=== PATIENT | male | born 1945 | race African-American/Black ===

== ENCOUNTER 2016-12-15 22:28 | Emergency (ER) | payer MEDICARE, OTHER ==
[~2016-12-15] VITALS: Ht 185.4 cm; Wt 101.0 kg
[~2016-12-15 22:28] MED LIST: AMIT50TA3 PO; AMMO12LO TOPICAL; ASPI1TAB69 PO; ATEN50TA PO; CYAN100016 PO; HYDR50TA3 PO; LISI40TA PO; MAGN400T2 PO; MELO-1 PO; METF1000 PO; NIFE30TA61 PO; POTA-163 PO; PRAV40TA2 PO; VITA100018 PO
[2016-12-15 22:29] VITALS: BP 134/76; PULSE 91; RESP 16; TEMP 98.3; O2SAT 97
[2016-12-15] MEDS ORDERED: ASPI81TA81 (22:44)
--- NOTE | 2016-12-15 22:57 | PD ---
HPI Chief Complaint: Numbness/Tingling Time Seen by Provider: 22:45 Travel History International Travel<30 days: No Contact w/Intl Traveler<30days: No Traveled to known affect area: No History of Present Illness HPI This patient complains of lightheadedness. Started yesterday. No head injury. No syncope or chest pain or palpitations. Yesterday he had some palpitations in his right arm and hand but no muscle weakness or sensory loss. No face or torso or leg symptoms. Those have resolved and he does not have any of that now. No speech slurring or confusion. Severity is moderate. No alleviating factors. Duration 30 hours PFSH Past Medical History Hx Anticoagulant Therapy: Yes Arthritis: Yes Blood Disorders: No Anxiety: No Depression: No Heart Rhythm Problems: No Cancer: Yes (PROSTATE) Cardiovascular Problems: Yes (htn) High Cholesterol: Yes Chemotherapy: Yes (2011) Chest Pain: Yes Congestive Heart Failure: No Diabetes: Yes Patient Takes Glucophage: No Diminished Hearing: No Endocrine: Yes Gastrointestinal Disorders: Yes GERD: No Genitourinary: No Hepatitis: Yes (B) Hiatal Hernia: No Hypertension: Yes Immune Disorder: No Musculoskeletal: Yes Neurologic: No Psychiatric: No Reproductive: No Respiratory: Yes (BRONCHITIS) Myocardial Infarction: No Thyroid Disease: No Ulcer: No Influenza Vaccination: Yes Past Surgical History Abdominal Surgery: Yes Appendectomy: Yes Cardiac Surgery: No Cholecystectomy: No Ear Surgery: No Endocrine Surgery: No Eye Surgery: No Genitourinary Surgery: Yes (PROSTATE) Gynecologic Surgery: No Joint Replacement: Yes (KNEE MANIPULATION AND REPLACE) Oral Surgery: No Thoracic Surgery: No Tonsillectomy: Yes Other Surgery: Yes Social History Alcohol Use: No Tobacco Use: No (never) Substance Use: No Allergies-Medications (Allergen,Severity, Reaction): Coded Allergies: Codeine (Verified Allergy, Intermediate, HALLUCINATIONS, 12/15/16) Reported Meds & Prescriptions Reported Meds & Active Scripts Active Reported Aspir-81 (Aspirin) 81 Mg Tabdr Ammonium Lactate (Lactic Acid (Ammonium Lactate)) 12% Lotn 1 Applic TOPICAL BID Amitriptyline (Amitriptyline HCl) 50 Mg Tab 50 Mg PO HS Pravastatin 40 Mg Tab 40 Mg PO DAILY Potassium Chloride ER (Potassium Chloride) 20 Meq Tab 20 Meq PO BID Nifedipine ER 24 HR (Nifedipine) 30 Mg Tab 30 Mg PO DAILY Metformin (Metformin HCl) 1,000 Mg Tab 1,000 Mg PO BIDPC With meals Meloxicam 15 Mg Tab 15 Mg PO DAILY Magnesium Oxide 400 Mg Tab 400 Mg PO DAILY Lisinopril 40 Mg Tab 40 Mg PO DAILY Hydrochlorothiazide 50 Mg Tab 50 Mg PO DAILY Vitamin D3 (Cholecalciferol) 1,000 Unit Tab 1,000 Units PO DAILY Atenolol 50 Mg Tab 50 Mg PO DAILY Review of Systems General / Constitutional: No: Fever Eyes: No: Visual changes HENT: Positive: Lightheadedness, No: Headaches Cardiovascular: No: Chest Pain or Discomfort Respiratory: No: Shortness of Breath Gastrointestinal: No: Abdominal Pain Genitourinary: No: Dysuria Musculoskeletal: No: Pain Skin: No Rash Neurologic: Positive: Paresthesia, No: Weakness Psychiatric: No: Depression Endocrine: No: Polydipsia Hematologic/Lymphatic: No: Easy Bruising Physical Exam Narrative GENERAL: Well-nourished, well-developed patient in no apparent distress. SKIN: Focused skin assessment reveals no rash and nodules. Skin is Warm and dry. HEAD: Atraumatic. Normocephalic. No scalp findings. EYES: Pupils equal and round. No scleral icterus. No injection or drainage. ENT: No nasal bleeding or discharge. Mucous membranes pink and moist. NECK: Trachea midline. No JVD. No meningeal signs CARDIOVASCULAR: Regular rate and rhythm. No murmur appreciated. RESPIRATORY: No accessory muscle use. Clear to auscultation. Breath sounds equal bilaterally. GASTROINTESTINAL: Abdomen soft, non-tender, nondistended. Hepatic and splenic margins not palpable. MUSCULOSKELETAL: No obvious deformities. No clubbing. No cyanosis. No edema. NEUROLOGICAL: Awake and alert. No obvious cranial nerve deficits. Motor grossly within normal limits. Normal speech. Sensation intact PSYCHIATRIC: Appropriate mood and affect; insight and judgment normal. Data Data Last Documented VS Vital Signs Date Time Temp Pulse Resp B/P Pulse Ox O2 Delivery O2 Flow Rate FiO2 12/16/16 01:50 92 18 130/72 91 18 140/69 83 18 152/78 12/15/16 22:58 98 Room Air 12/15/16 22:29 98.3 Orders Electrocardiogram (12/15/16 22:51) Prothrombin Time / Inr (Pt) (12/15/16 22:51) Act Partial Throm Time (Ptt) (12/15/16 22:51) Complete Blood Count With Diff (12/15/16 22:51) Basic Metabolic Panel (Bmp) (12/15/16 22:51) Ct Brain W/O Iv Contrast(Rout) (12/15/16 22:51) Ecg Monitoring (12/15/16 22:51) Iv Access Insert/Monitor (12/15/16 22:51) Oximetry (12/15/16 22:51) Sodium Chloride 0.9% Flush (Ns Flush) (12/15/16 23:00) Orthostatic Vital Signs (12/15/16 22:51) Sodium Chlor 0.9% 1000 Ml Inj (Ns 1000 M (12/16/16 01:00) Sodium Chlor 0.9% 1000 Ml Inj (Ns 1000 M (12/16/16 01:00) Labs Laboratory Tests Test 12/15/16 22:55 Prothrombin Time 11.6 SEC Prothromb Time International 1.0 RATIO Ratio Activated Partial 24.2 SEC Thromboplast Time Sodium Level 143 MEQ/L Potassium Level 5.8 MEQ/L Chloride Level 108 MEQ/L Carbon Dioxide Level 28.2 MEQ/L Anion Gap 7 MEQ/L Blood Urea Nitrogen 40 MG/DL Creatinine 1.76 MG/DL Estimat Glomerular Filtration 46 ML/MIN Rate Random Glucose 86 MG/DL Calcium Level 9.4 MG/DL White Blood Count 72.3 TH/MM3 Red Blood Count 4.95 MIL/MM3 Hemoglobin 12.8 GM/DL Hematocrit 39.7 % Mean Corpuscular Volume 80.1 FL Mean Corpuscular Hemoglobin 25.7 PG Mean Corpuscular Hemoglobin 32.2 % Concent Red Cell Distribution Width 16.2 % Platelet Count 155 TH/MM3 Mean Platelet Volume 9.3 FL Neutrophils (%) (Auto) % Lymphocytes (%) (Auto) % Monocytes (%) (Auto) % Eosinophils (%) (Auto) % Basophils (%) (Auto) % Neutrophils # (Auto) TH/MM3 Lymphocytes # (Auto) TH/MM3 Monocytes # (Auto) TH/MM3 Eosinophils # (Auto) TH/MM3 Basophils # (Auto) TH/MM3 CBC Comment AUTO DIFF Differential Total Cells 100 Counted Neutrophils % (Manual) 8 % Lymphocytes % 9 % Monocytes % 2 % Other Cells % 81 % Neutrophils # (Manual) 5.8 TH/MM3 Differential Comment FINAL DIFF MANUAL Platelet Estimate NORMAL Platelet Morphology Comment NORMAL Ovalocytes 1+ Acanthocytes OCC MDM Medical Decision Making Medical Screen Exam Complete: Yes Emergency Medical Condition: Yes Medical Record Reviewed: Yes Differential Diagnosis Vertigo, orthostatic hypotension, cardiac arrhythmia, CVA Narrative Course I have reviewed the patient's electronic medical record. IV placed CBC shows significant leukocytosis consistent with chronic lymphocytic leukemia as he reports that he has and is just being monitored and not treated Metabolic profile shows azotemia which is a new change. I gave him 2 L of normal saline IV after this. After IV fluid his orthostatics are very normal and he feels improved Brain CT is normal I reviewed his EKG which shows sinus rhythm without ectopy Extended cardiac monitoring shows sinus rhythm without ectopy Patient is neurologically intact. He has some lightheadedness but otherwise doing well. Vital signs are normal. Yesterday he had some right arm paresthesias that have resolved and not recurred today. I don't see any objective evidence of stroke. Patient had some dehydration and azotemia causing lightheadedness. Likely etiology is diuretic Diagnosis Primary Impression: Lightheadedness Additional Impressions: Dehydration, moderate Renal insufficiency Additional Instructions: The patient was advised to follow up with their physician and return if they worsen. Discuss continued diuretic use with her primary physician Med/Other Pt SpecificInfo: Other Disposition: DISCHARGE HOME Condition: Stable Chilo Gomes MD Dec 15, 2016 22:57
[2016-12-15 22:58] VITALS: O2SAT 98
[2016-12-15] MEDS ORDERED: SODIUM CHLORIDE 0.9% FLUSH 10 ML FLUSH IVF PRN (23:00)
[2016-12-15 23:23] LABS: APTT (PATIENT) 24.2 SEC (24.3-30.1); PROTHROMBIN TIME - PATIENT 11.6 SEC (9.8-11.6)
[2016-12-15 23:26] LABS: BICARBONATE 28.2 MEQ/L (21.0-32.0)
[2016-12-15 23:27] LABS: HEMATOCRIT 39.7 % (39.0-51.0); MEAN CELL VOLUME 80.1 FL (80.0-100.0); MEAN CORPUSCULAR HEMOGLOBIN 25.7 PG (27.0-34.0); MEAN CORPUSCULAR HGB CONC 32.2 % (32.0-36.0); PLATELET COUNT 155 TH/MM3 (150-450); RED BLOOD COUNT 4.95 MIL/MM3 (4.50-5.90); RED CELL DISTRIBUTION WIDTH 16.2 % (11.6-17.2); WHITE BLOOD COUNT 72.3 TH/MM3 (4.0-11.0)
[2016-12-15 23:28] LABS: HEMO FLAGS AUTO DIFF; POTASSIUM 5.8 MEQ/L (3.5-5.1)
--- NOTE | 2016-12-16 | RADRPT ---
EXAM DATE/TIME: 12/15/2016 23:28 [facility] COMPARISON: CT BRAIN W/O CONTRAST, April 06, 2016, 11:19. INDICATIONS : Altered mental status, cephalgia and blurred vision. RADIATION DOSE: 56.35 CTDIvol (mGy) MEDICAL HISTORY : Hypertension. Carcinoma, prostate. Leukemia.Diabetes. SURGICAL HISTORY : None. ENCOUNTER: Initial ACUITY: 2 days PAIN SCALE: 2/10 LOCATION: cranial TECHNIQUE: Multiple contiguous axial images were obtained of the head. Using automated exposure control and adj ustment of the mA and/or kV according to patient size, radiation dose was kept as low as reasonably a chievable to obtain optimal diagnostic quality images. FINDINGS: CEREBRUM: The ventricles are normal for age. No evidence of midline shift, mass lesion, hemorrhage or acute in farction. No extra-axial fluid collections are seen. POSTERIOR FOSSA: The cerebellum and brainstem are intact. The 4th ventricle is midline. The cerebellopontine angle i s unremarkable. EXTRACRANIAL: The visualized portion of the orbits is intact. SKULL: The calvaria is intact. No evidence of skull fracture. CONCLUSION: Negative noncontrast head CT. Alexandro Monson MD on December 15, 2016 at 23:58 Board Certified Radiologist. This report was verified electronically.
[2016-12-16 00:06] LABS: NEUTROPHIL # MANUAL DIFF 5.8 TH/MM3 (1.8-7.7); POLYS (SEG NEUTROPHILS) 8 % (16-70)
[2016-12-16 00:07] LABS: SCAN/DIFF FINAL DIFF MANUAL; WBC DIFF SAMPLE 100
[2016-12-16 00:08] LABS: OVALOCYTES 1+ (NORMAL); PLATELET ESTIMATE SMEAR NORMAL (NORMAL); PLATELET MORPHOLOGY NORMAL (NORMAL)
[2016-12-16 00:09] LABS: ACANTHOCYTES OCC (NORMAL)
[2016-12-16] MEDS ORDERED: SODIUM CHLOR 0.9% 1000 ML INJ 1,000 ML IV ONE ×2 (01:00)
[2016-12-16 01:50] VITALS: BP_SYST 130; BP_SYST 140; BP_SYST 152; BP_DIAS 69; BP_DIAS 72; BP_DIAS 78; RESP 18
--- NOTE | 2016-12-16 13:54 | EKG ---
Date Performed: 12/15/2016 Time Performed: 22:43:53 PTAGE: 71 years EKG: Sinus rhythm NORMAL ECG Compared to prior tracing no significant change PREVIOUS TRACING : 04/06/16 DOCTOR: Carmen Wagoner Interpretating Date/Time 12/16/2016 13:47:40
[2016-12-17 05:27] LABS: SMUDGE CELLS PRESENT PRESENT
== END 2016-12-16 02:22 | disposition home or self-care (01) ==
LOC: NEPC 22:28
DX: R42 Dizziness and giddiness (principal); E86.0 Dehydration; N28.9 Disorder of kidney and ureter, unspecified; D72.829 Elevated white blood cell count, unspecified; E11.9 Type 2 diabetes mellitus without complications; I10 Essential (primary) hypertension; E78.00 Pure hypercholesterolemia, unspecified; Z79.82 Long term (current) use of aspirin; Z79.899 Other long term (current) drug therapy
CPT/HCPCS: 70450; 80048; 85007; 85027; 85610; 85730; 93005; 96360; 99285; J7030

== ENCOUNTER 2017-04-22 06:12 | Inpatient (IN) | payer MEDICARE, OTHER ==
[~2017-04-22] VITALS: Ht 185.4 cm; Wt 100.0 kg
[2017-04-22] VITALS (8 sets, daily range): BP systolic 130–153; BP diastolic 67–86; PULSE 76–103; RESP 16–18; TEMP 97.7–98.4; O2SAT 95–99
[~2017-04-22 06:12] MED LIST changes: -ASPI1TAB69 PO; +ASPI81TA81; -CYAN100016 PO
[2017-04-22] MEDS ORDERED: IOHEXOL 350 MG/ML 10 ML VIAL (for RAD DIAG) IVCONTRAST ONE (06:13)
--- NOTE | 2017-04-22 07:13 | PD ---
HPI Chief Complaint: Abdominal Pain Time Seen by Provider: 06:59 Travel History International Travel<30 days: No Contact w/Intl Traveler<30days: No Traveled to known affect area: No History of Present Illness HPI 71-year-old male presents with diffuse abdominal pain and dark stools over the past couple days. He states that he first noticed her symptoms on . He states that he feels worse when he moves around. He states that the pain will go up into his chest. He states that he takes an aspirin daily. He denies other specific modifying factors. Quality is crampy. Severity is moderate. He denies migration of the pain. Location is diffuse. PFSH Past Medical History Hx Anticoagulant Therapy: Yes Arthritis: Yes Blood Disorders: No Anxiety: No Depression: No Heart Rhythm Problems: No Cancer: Yes (PROSTATE) Cardiovascular Problems: Yes (htn) High Cholesterol: Yes Chemotherapy: Yes (2011) Chest Pain: Yes Congestive Heart Failure: No Diabetes: Yes Patient Takes Glucophage: Yes Diminished Hearing: No Endocrine: Yes Gastrointestinal Disorders: Yes GERD: No Genitourinary: No Hepatitis: Yes (B) Hiatal Hernia: No Hypertension: Yes Immune Disorder: No Musculoskeletal: Yes Neurologic: No Psychiatric: No Reproductive: No Respiratory: Yes (BRONCHITIS) Myocardial Infarction: No Thyroid Disease: No Ulcer: No Past Surgical History Abdominal Surgery: Yes Appendectomy: Yes Cardiac Surgery: No Cholecystectomy: No Ear Surgery: No Endocrine Surgery: No Eye Surgery: No Genitourinary Surgery: Yes (PROSTATE) Gynecologic Surgery: No Joint Replacement: Yes (KNEE MANIPULATION AND REPLACE) Oral Surgery: No Thoracic Surgery: No Tonsillectomy: Yes Other Surgery: Yes Social History Alcohol Use: No Tobacco Use: No (never) Substance Use: No Allergies-Medications (Allergen,Severity, Reaction): Coded Allergies: codeine (Unverified Allergy, Intermediate, HALLUCINATIONS, 04/22/17) Reported Meds & Prescriptions Reported Meds & Active Scripts Active Reported Aspir-81 (Aspirin) 81 Mg Tabdr Ammonium Lactate (Lactic Acid (Ammonium Lactate)) 12% Lotn 1 Applic TOPICAL BID Amitriptyline (Amitriptyline HCl) 50 Mg Tab 50 Mg PO HS Pravastatin 40 Mg Tab 40 Mg PO DAILY Potassium Chloride ER (Potassium Chloride) 20 Meq Tab 20 Meq PO BID Nifedipine ER 24 HR (Nifedipine) 30 Mg Tab 30 Mg PO DAILY Metformin (Metformin HCl) 1,000 Mg Tab 1,000 Mg PO BIDPC With meals Meloxicam 15 Mg Tab 15 Mg PO DAILY Magnesium Oxide 400 Mg Tab 400 Mg PO DAILY Lisinopril 40 Mg Tab 40 Mg PO DAILY Hydrochlorothiazide 50 Mg Tab 50 Mg PO DAILY Vitamin D3 (Cholecalciferol) 1,000 Unit Tab 1,000 Units PO DAILY Atenolol 50 Mg Tab 50 Mg PO DAILY Review of Systems Except as stated in HPI: all other systems reviewed are Neg Physical Exam Narrative GENERAL: Well-nourished, well-developed patient. SKIN: Warm and dry. HEAD: Normocephalic and atraumatic. EYES: No injection or drainage. ENT: No nasal drainage noted. NECK: Supple, trachea midline. CARDIOVASCULAR: Regular rate and rhythm RESPIRATORY: No increased effort. No accessory muscle use. GASTROINTESTINAL: Abdomen soft, mild tenderness diffusely non-tender, nondistended. RECTAL EXAM: Performed with cow tender and after permission. No external hemorrhoid or fissure, stool is black and nonbloody NEUROLOGICAL: Awake and alert. Motor and sensory grossly within normal limits. Normal speech. Data Data Last Documented VS Vital Signs Date Time Temp Pulse Resp B/P (MAP) Pulse Ox O2 Delivery O2 Flow Rate FiO2 04/22/17 07:04 16 (100) 96 Room Air 04/22/17 07:04 89 04/22/17 06:14 97.7 Orders Orders Complete Blood Count With Diff (04/22/17 07:02) Comprehensive Metabolic Panel (04/22/17 07:02) Urinalysis - C+S If Indicated (04/22/17 07:02) Lipase (04/22/17 07:02) Ct Abd/Pel W Iv Contrast(Rout) (04/22/17 ) Iv Access Insert/Monitor (04/22/17 07:02) Oximetry (04/22/17 07:02) Electrocardiogram (04/22/17 07:02) Ckmb (Isoenzyme) Profile (04/22/17 07:02) Magnesium (Mg) (04/22/17 07:02) Prothrombin Time / Inr (Pt) (04/22/17 07:02) Act Partial Throm Time (Ptt) (04/22/17 07:02) Troponin I (04/22/17 07:02) Chest, Single Ap (04/22/17 07:02) Bilateral Bp Monitoring (04/22/17 07:02) Sodium Chloride 0.9% Flush (Ns Flush) (04/22/17 07:15) Pantoprazole Inj (Protonix Inj) (04/22/17 07:15) Iohexol 350 Inj (Omnipaque 350 Inj) (04/22/17 06:13) Sodium Chlorid 0.9% 500 Ml Inj (Ns 500 M (04/22/17 08:45) Admit Order (Ed Use Only) (04/22/17 09:37) Labs Laboratory Tests Test 04/22/17 07:00 White Blood Count 82.7 TH/MM3 Red Blood Count 4.58 MIL/MM3 Hemoglobin 11.8 GM/DL Hematocrit 36.3 % Mean Corpuscular Volume 79.3 FL Mean Corpuscular Hemoglobin 25.8 PG Mean Corpuscular Hemoglobin Concent 32.5 % Red Cell Distribution Width 17.2 % Platelet Count 115 TH/MM3 Mean Platelet Volume 8.7 FL CBC Comment AUTO DIFF Differential Total Cells Counted 100 Neutrophils % (Manual) 3 % Lymphocytes % 95 % Monocytes % 2 % Neutrophils # (Manual) 2.5 TH/MM3 Differential Comment FINAL DIFF MANUAL Plasma Cells % Smudge Cells PRESENT Platelet Estimate LOW Platelet Morphology Comment NORMAL Prothrombin Time 12.0 SEC Prothromb Time International Ratio 1.1 RATIO Activated Partial Thromboplast Time 28.2 SEC Blood Urea Nitrogen 24 MG/DL Creatinine 1.08 MG/DL Random Glucose 149 MG/DL Total Protein 7.8 GM/DL Albumin 3.8 GM/DL Calcium Level 9.0 MG/DL Magnesium Level 1.9 MG/DL Alkaline Phosphatase 89 U/L Aspartate Amino Transf (AST/SGOT) 24 U/L Alanine Aminotransferase (ALT/SGPT) 27 U/L Total Bilirubin 0.5 MG/DL Sodium Level 139 MEQ/L Potassium Level 3.6 MEQ/L Chloride Level 105 MEQ/L Carbon Dioxide Level 24.6 MEQ/L Anion Gap 9 MEQ/L Estimat Glomerular Filtration Rate 81 ML/MIN Total Creatine Kinase 100 U/L Troponin I LESS THAN 0.02 NG/ML Lipase 97 U/L MDM Medical Decision Making Medical Screen Exam Complete: Yes Emergency Medical Condition: Yes Medical Record Reviewed: Yes (past history confirmed) Interpretation(s) CBC & BMP Diagram 04/22/17 07:00 Total Protein 7.8, Albumin 3.8, Calcium Level 9.0, Magnesium Level 1.9, Alkaline Phosphatase 89, Aspartate Amino Transf (AST/SGOT) 24, Alanine Aminotransferase (ALT/SGPT) 27, Total Bilirubin 0.5 Last 24 hours Impressions Abdomen/Pelvis CT 04/22/17 0000 Signed Impressions: Service Date/Time: Saturday, April 22, 2017 08:23 - CONCLUSION: 1. New splenomegaly and retroperitoneal adenopathy. This is worrisome for a myeloproliferative disorder. 2. Low density lesion involving the spleen which is poorly characterized on this exam. This is new from the prior study. 3. 2 small pulmonary nodules which are new from the prior study. They are poorly characterize on this exam. There could relate to a myeloproliferative disorder. Consider full CT of the thorax to evaluate the remaining lungs. Rocael Mueller Jr., MD Differential Diagnosis Gastroenteritis, pancreatitis, stone, GI bleed, atypical cardiac Narrative Course Will check blood work, urinalysis, chest x-ray, CT abdomen and dose with Protonix and reevaluate Patient has anemia of 11.8 with prior of 12.8. Stools guaiac positive. Patient updated about CT and states he follows with an oncologist at the [facility] that he's follow week ago. He states he is currently not on treatment. He agrees to observation for further monitoring. Patient states he also has pain that intermittently goes up into his chest but denies any currently. Given active guaiac positive stools will hold aspirin and this can be followed in the [facility] Point of Care Internal Pos. & Neg. Controls: Passed Fecal Specimen Occult Blood: Positive Physician Communication Physician Communication resident team agrees to observation Diagnosis Primary Impression: Hematochezia Additional Impressions: Anemia Qualified Codes: D64.9 - Anemia, unspecified Abdominal pain Qualified Codes: R10.84 - Generalized abdominal pain CLL (chronic lymphocytic leukemia) Admitting Information Admitting Physician Requests: Observation Karina Osorio MD Apr 22, 2017 07:13
[2017-04-22] MEDS ORDERED: SODIUM CHLORIDE 0.9% FLUSH 10 ML FLUSH IVF PRN (07:15)
[2017-04-22] MEDS ORDERED: PANTOPRAZOLE SODIUM 40 MG VIAL IV PUSH ONE (07:15)
[2017-04-22 07:27] LABS: HEMATOCRIT 36.3 % (39.0-51.0); HEMOGLOBIN 11.8 GM/DL (13.0-17.0); MEAN CELL VOLUME 79.3 FL (80.0-100.0); MEAN CORPUSCULAR HEMOGLOBIN 25.8 PG (27.0-34.0); MEAN CORPUSCULAR HGB CONC 32.5 % (32.0-36.0); MEAN PLATELET VOLUME 8.7 FL (7.0-11.0); PLATELET COUNT 115 TH/MM3 (150-450); RED BLOOD COUNT 4.58 MIL/MM3 (4.50-5.90); RED CELL DISTRIBUTION WIDTH 17.2 % (11.6-17.2); WHITE BLOOD COUNT 82.7 TH/MM3 (4.0-11.0)
[2017-04-22 07:40] LABS: INTERNATIONAL NORMALIZED RATIO 1.1 RATIO
[2017-04-22 07:45] LABS: ALBUMIN 3.8 GM/DL (3.4-5.0); ALT (GPT) 27 U/L (12-78); AST (GOT) 24 U/L (15-37); BICARBONATE 24.6 MEQ/L (21.0-32.0); BLOOD UREA NITROGEN 24 MG/DL (7-18); CHLORIDE 105 MEQ/L (98-107); CREATININE 1.08 MG/DL (0.60-1.30); GLOMERULAR FILTRATION RATE 81 ML/MIN (>89); GLUCOSE,RANDOM 149 MG/DL (74-106); LIPASE 97 U/L (73-393); MAGNESIUM 1.9 MG/DL (1.5-2.5); SODIUM (NA) 139 MEQ/L (136-145)
[2017-04-22 07:49] LABS: ALKALINE PHOSPHATASE 89 U/L (45-117); TOTAL BILIRUBIN ADULT 0.5 MG/DL (0.2-1.0); TOTAL PROTEIN 7.8 GM/DL (6.4-8.2); TROPONIN I LESS THAN 0.02 NG/ML (0.02-0.05)
--- NOTE | 2017-04-22 08:37 | RADRPT ---
EXAM DATE/TIME: 04/22/2017 07:09 [facility] COMPARISON: CHEST SINGLE AP, April 06, 2016, 11:28. INDICATIONS : Chest pain. MEDICAL HISTORY : Hypertension. Diabetes mellitus type II. SURGICAL HISTORY : None. ENCOUNTER: Initial ACUITY: 1 day PAIN SCORE: 5/10 LOCATION: Bilateral lower chest FINDINGS: The heart is unchanged. The pulmonary vascular pattern is normal. The lungs are clear. CONCLUSION: No significant change compared to 04/06/16. Timothy Morse MD on April 22, 2017 at 7:41 Board Certified Radiologist. This report was verified electronically.
[2017-04-22] MEDS ORDERED: SODIUM CHLORID 0.9% 500 ML INJ 500 ML IV ONE (08:45)
[2017-04-22 08:51] LABS: MONOCYTES 2 % (0-8); NEUTROPHIL # MANUAL DIFF 2.5 TH/MM3 (1.8-7.7); POLYS (SEG NEUTROPHILS) 3 % (16-70)
[2017-04-22 08:57] LABS: SMUDGE CELLS PRESENT PRESENT
[2017-04-22 09:03] LABS: LYMPHOCYTES 95 % (9-44)
--- NOTE | 2017-04-22 09:16 | RADRPT ---
EXAM DATE/TIME: 04/22/2017 08:23 [facility] COMPARISON: CT THORAX W CONTRAST, December 24, 2015, 18:01. INDICATIONS : Diffuse abdominal pain since yesterday. IV CONTRAST: 89 cc Omnipaque 350 (iohexol) IV ORAL CONTRAST: No oral contrast ingested. RADIATION DOSE: 10.29 CTDIvol (mGy) MEDICAL HISTORY : Renal calculi. Carcinoma, prostate. Hepatitis B.Cardiovascular disease. SURGICAL HISTORY : Appendectomy. ENCOUNTER: Initial ACUITY: 1 day PAIN SCALE: 8/10 LOCATION: diffuse abdomen. TECHNIQUE: Volumetric scanning of the abdomen and pelvis was performed. Using automated exposure control and ad justment of the mA and/or kV according to patient size, radiation dose was kept as low as reasonably achievable to obtain optimal diagnostic quality images. DICOM format image data is available electro nically for review and comparison. FINDINGS: LOWER LUNGS: 2 new nodular densities are seen in the bases. There is a 7 on a nodule within the right lung base in 4 mm nodule within the left lung base. No infiltrates observed. LIVER: Homogeneous density without lesion. There is no dilation of the biliary tree. No calcified gallston es. SPLEEN: The spleen is markedly enlarged. This is a new finding. It measures 17.8 cm in anterior to posterior dimension. There is a vague area of decreased density measuring approximately 16 mm in diameter withi n its more anterior aspect. These findings are new from the prior study. PANCREAS: Within normal limits. KIDNEYS: Normal in size and shape. There is no mass, stone or hydronephrosis. The 4.5 cm cyst involving the u pper pole the left kidney. ADRENAL GLANDS: Within normal limits. VASCULAR: There is no aortic aneurysm. BOWEL/MESENTERY: The stomach, small bowel, and colon demonstrate no acute abnormality. There is no free intraperitone al air or fluid. ABDOMINAL WALL: Within normal limits. RETROPERITONEUM: Small retroperitoneal lymph nodes are new from the prior study within the visualized portions of the retroperitoneum. The largest lymph node is adjacent to the celiac measuring 2.0 x 1.3 cm. BLADDER: No wall thickening or mass. REPRODUCTIVE: Within normal limits. INGUINAL: There is no lymphadenopathy or hernia. MUSCULOSKELETAL: The right hip implant observed. A degenerative lumbar spine. Degenerative changes involve the SI join ts. CONCLUSION: 1. New splenomegaly and retroperitoneal adenopathy. This is worrisome for a myeloproliferative disord er. 2. Low density lesion involving the spleen which is poorly characterized on this exam. This is new fr om the prior study. 3. 2 small pulmonary nodules which are new from the prior study. They are poorly characterize on this exam. There could relate to a myeloproliferative disorder. Consider full CT of the thorax to evaluat e the remaining lungs. Rocael Mueller Jr., MD on April 22, 2017 at 8:56 Board Certified Radiologist. This report was verified electronically.
--- NOTE | 2017-04-22 09:39 | HHI.HP ---
[facility] Service Family Medicine Primary Care Physician [facility] Admission Diagnosis gi bleed, abdominal pain Diagnoses: International Travel<30 Days: No Contact w/Intl Traveler<30days: No Known Affected Area: No History of Present Illness Patient is a 71 y/o M w/hx of HTN, HLD, and DM2 who presents w/abdominal pain and melena. Yesterday, patient had a bloated feeling and diffuse 8/10 abdominal pain in stomach, which caused him to take shallow breaths. He bought some peptobismol, drank the whole bottle but saw no improvement. Pain radiated to shoulder, and intensity of pain brought him to hospital. Feels sharp pain when moving shoulder , no abdominal pain now. Noticed black stool late yesterday afternoon, no diarrhea, or loose stools associated with it. Denies lightheadedness, palpitations, or dizziness. Notices his balance is off a little. Was hospitalized a year ago and diagnosed with leukemia. Remembers having abdominal pain before and taking milk of magnesia but no hx of melena of GI bleed that the patient can recall. Primary care doctor is Dr. Pedro in [facility]. Has a [place] doctor, but can't think of his name. Was supposed to see him today. Last colonoscopy was 9 months ago, no abnormal findings. No hx of abnormal colonoscopy. Sees [place] Q6 [place] the [place]. Has not been undergoing treatment for his CLL due to not warranting it. Last appointment was last week, was told that his labs looked good but that he would need to follow up q3 months. Denies weight loss, night sweats, or fevers. (Rajani Fuentes MD R1) Review of Systems Constitutional: COMPLAINS OF: Weight loss (intentional), DENIES: Fever, Change in appetite Endocrine: DENIES: Polydipsia, Polyuria Eyes: DENIES: Blurred vision, Vision loss Ears, nose, mouth, throat: DENIES: Hearing loss, Throat pain, Epistaxis Respiratory: DENIES: Cough, Shortness of breath Cardiovascular: DENIES: Chest pain, Dyspnea on Exertion Gastrointestinal: DENIES: Diarrhea, Nausea, Vomiting Genitourinary: DENIES: Urinary frequency, Urinary incontinence, Penile Discharge Musculoskeletal: DENIES: Muscle aches, Stiffness Integumentary: DENIES: Abnormal pigmentation, Rash Hematologic/lymphatic: DENIES: Bruising, Lymphadenopathy Neurologic: COMPLAINS OF: Headache, DENIES: Localized weakness (Rajani Fuentes MD R1) Past Family Social History Past Medical History Arthritis DM 2 CLL (11/2015 dx on admission for R. hip and left flank pain with hematuria. WBC 13.6 w/27% possible blasts. 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, CT C/A/P = No LAD or HSM) HLD HTN Kidney stones Prostate ca (Cryotherapy 2006, XRT in [place]) - 2004 Past Surgical History Appendectomy Prostate bx R leg fracture Tonsillectomy (Rajani Fuentes MD R1) Allergies: Coded Allergies: codeine (Unverified Allergy, Intermediate, HALLUCINATIONS, 04/22/17) Family History Mom: 56, brain cancer Dad: 92, prostate cancer Sister: 50, brain cancer, mets to lungs Social History No ETOH hx or current use, no drug use, no smoking (Rajani Fuentes MD R1) Physical Exam Vital Signs Vital Signs Date Time Temp Pulse Resp B/P (MAP) Pulse Ox O2 Delivery O2 Flow Rate FiO2 04/22/17 07:04 16 (100) 96 Room Air 04/22/17 07:04 89 17 139/69 (92) 96 Room Air 143/67 (92) 04/22/17 06:39 18 04/22/17 06:14 97.7 103 16 144/78 (100) 99 Room Air Physical Exam GENERAL: This is a well-nourished, well-developed patient, in no apparent distress. SKIN: No rashes, ecchymoses or lesions. Cool and dry. HEAD: Atraumatic. Normocephalic. EYES: Pupils equal round and reactive. Extraocular motions intact. No scleral icterus. No injection or drainage. ENT: Nose without bleeding, purulent drainage or septal hematoma. Throat without erythema, tonsillar hypertrophy or exudate. Uvula midline. Airway patent. NECK: Trachea midline. No JVD or lymphadenopathy. Tenderness to palpation of left trapezius and anterior upper shoulder. CARDIOVASCULAR: Regular rate and rhythm without murmurs, gallops, or rubs. RESPIRATORY: Clear to auscultation. Breath sounds equal bilaterally. No wheezes , rales, or rhonchi. GASTROINTESTINAL: Abdomen soft, slightly distended. LUQ tenderness and RUQ tenderness. Hepatomegaly noted. MUSCULOSKELETAL: Extremities without clubbing, cyanosis, or edema. No joint tenderness, effusion, or edema noted. No calf tenderness. Negative Homans sign bilaterally. NEUROLOGICAL: Awake and alert. Motor and sensory grossly within normal limits. Normal speech. Laboratory Laboratory Tests Test 04/22/17 07:00 White Blood Count 82.7 Red Blood Count 4.58 Hemoglobin 11.8 Hematocrit 36.3 Mean Corpuscular Volume 79.3 Mean Corpuscular Hemoglobin 25.8 Mean Corpuscular Hemoglobin Concent 32.5 Red Cell Distribution Width 17.2 Platelet Count 115 Mean Platelet Volume 8.7 CBC Comment AUTO DIFF Differential Total Cells Counted 100 Neutrophils % (Manual) 3 Lymphocytes % 95 Monocytes % 2 Neutrophils # (Manual) 2.5 Differential Comment FINAL DIFF MANUAL Plasma Cells Smudge Cells PRESENT Platelet Estimate LOW Platelet Morphology Comment NORMAL Prothrombin Time 12.0 Prothromb Time International Ratio 1.1 Activated Partial Thromboplast Time 28.2 Blood Urea Nitrogen 24 Creatinine 1.08 Random Glucose 149 Total Protein 7.8 Albumin 3.8 Calcium Level 9.0 Magnesium Level 1.9 Alkaline Phosphatase 89 Aspartate Amino Transf (AST/SGOT) 24 Alanine Aminotransferase (ALT/SGPT) 27 Total Bilirubin 0.5 Sodium Level 139 Potassium Level 3.6 Chloride Level 105 Carbon Dioxide Level 24.6 Anion Gap 9 Estimat Glomerular Filtration Rate 81 Total Creatine Kinase 100 Troponin I LESS THAN 0.02 Lipase 97 (Rajani Fuentes MD R1) Result Diagram: 04/22/17 0700 04/22/17 0700 Imaging Last 24 hours Impressions Chest X-Ray 04/22/17 0702 Signed Impressions: Service Date/Time: Saturday, April 22, 2017 07:09 - CONCLUSION: No significant change compared to 04/06/16. Timothy Morse MD Abdomen/Pelvis CT 04/22/17 0000 Signed Impressions: Service Date/Time: Saturday, April 22, 2017 08:23 - CONCLUSION: 1. New splenomegaly and retroperitoneal adenopathy. This is worrisome for a myeloproliferative disorder. 2. Low density lesion involving the spleen which is poorly characterized on this exam. This is new from the prior study. 3. 2 small pulmonary nodules which are new from the prior study. They are poorly characterize on this exam. There could relate to a myeloproliferative disorder. Consider full CT of the thorax to evaluate the remaining lungs. Rocael Mueller Jr., MD (Rajani Fuentes MD R1) Caprini VTE Risk Assessment Caprini VTE Risk Assessment: Mod/High Risk (score >= 2) VTE Pharm Contraindication: High risk for bleeding Caprini Risk Assessment Model Point Value = 1 Point Value = 2 Point Value = 3 Point Value = 5 Age 41-60 Minor surgery BMI > 25 kg/m2 Swollen legs Varicose veins or History of unexplained or recurrent spontaneous Oral contraceptives or hormone replacement Sepsis (< 1 month) Serious lung disease, including pneumonia (< 1 month) Abnormal pulmonary function Acute myocardial infarction Congestive heart failure (< 1 month) History of inflammatory bowel disease Medical patient at bed rest Age 61-74 Arthroscopic surgery Major open surgery (> 45 min) Laparoscopic surgery (> 45 min) Malignancy Confined to bed (> 72 hours) Immobilizing plaster cast Central venous access Age >= 75 History of VTE Family history of VTE Factor V Leiden Prothrombin [id number] Lupus anticoagulant Anticardiolipin antibodies Elevated serum homocysteine Heparin-induced thrombocytopenia Other congenital or acquired thrombophilia Stroke (< 1 month) Elective arthroplasty Hip, pelvis, or leg fracture Acute spinal cord injury (< 1 month) Prophylaxis Regimen Total Risk Factor Score Risk Level Prophylaxis Regimen 0-1 Low Early ambulation 2 Moderate Order ONE of the following: *Sequential Compression Device (SCD) *Heparin 5000 units SQ BID 3-4 Higher Order ONE of the following medications: *Heparin 5000 units SQ TID *Enoxaparin/Lovenox 40 mg SQ daily (WT < 150 kg, CrCl > 30 mL/min) *Enoxaparin/Lovenox 30 mg SQ daily (WT < 150 kg, CrCl > 10-29 mL/min) *Enoxaparin/Lovenox 30 mg SQ BID (WT < 150 kg, CrCl > 30 mL/min) AND/OR *Sequential Compression Device (SCD) 5 or more Highest Order ONE of the following medications: *Heparin 5000 units SQ TID (Preferred with Epidurals) *Enoxaparin/Lovenox 40 mg SQ daily (WT < 150 kg, CrCl > 30 mL/min) *Enoxaparin/Lovenox 30 mg SQ daily (WT < 150 kg, CrCl > 10-29 mL/min) *Enoxaparin/Lovenox 30 mg SQ BID (WT < 150 kg, CrCl > 30 mL/min) AND *Sequential Compression Device (SCD) (Rajani Fuentes MD R1) Assessment and Plan Assessment and Plan Patient is a 71 y/o M w/hx of CLL who presents for diffuse abdominal pain and melena. Found to have guaic+ stools in the ED. Placed on IV protonix 40 mg BID, IVF, and NPO. D/C'd his home meloxicam and aspirin. Abdominal tenderness to the upper quadrants and splenomegaly observed on physical exam. Will monitor his abdominal pain for improvement after GI work-up. Patient have a chronic underlying abdominal pain from his CLL. CT abdomen shows splenomegaly, retroperitoneal adenopathy, and new pulmonary nodules. Will contact his oncologist for medical records. Patient may need to follow up with his oncologist for repeat assessment and more targeted treatment. Code Status DNR Discussed Condition With Dr. Fentno and Dr. Vinson (Rajani Fuentes MD R1) Attending Attestation Patient seen and examined. Case reviewed and discussed with the resident team. Agree with plan of care as discussed with me and documented in the resident note. pt seen in ED on admission. agree with follow up on h/h for stability (Jil Fenton MD) Problem List: (1) Abdominal pain ICD Codes: R10.9 - Unspecified abdominal pain Status: Acute Plan: Initially came into the ED with diffuse abdominal pain and distension that has now resolved. Pain is mainly concentrated in the left upper quadrant. Splenomegaly on physical exam. Guaic + stool. -GI consulted - IV protonix 40 mg BID - NPO - IVF 80 mls/hr - D/C all NSAIDs - SCDs only - HH Q6H (2) Chest pain ICD Codes: R07.9 - Chest pain, unspecified Plan: EKG normal on admission. Patient complains of upper left chest pain radiating to the left shoulder, worse with movement and deep breaths. Likely not cardiac related but will do ACS r/o. On exam, patient has tenderness and muscle spasm of left trapezius. - Con't to trend troponins and EKG - Lortab and heating pad for pain control (3) Melena ICD Codes: K92.1 - Melena Status: Acute Plan: Per patient hx, noted x2. See plan above (4) CLL (chronic lymphocytic leukemia) ICD Codes: C91.10 - Chronic lymphocytic leukemia of B-cell type not having achieved remission Status: Acute Plan: Diagnosed in 2016. [facility] Not currently being treated but being monitored via [id number] appointments. WBC count today of 82.7 - Requested medical records from his oncologist (5) HLD (hyperlipidemia) ICD Codes: E78.5 - Hyperlipidemia, unspecified Plan: Con't home statin (6) Arthritis ICD Codes: M19.90 - Unspecified osteoarthritis, unspecified site Plan: Takes baby ASA and Meloxicam 15 mg daily. Hold all NSAIDs for now. (7) HTN (hypertension) ICD Codes: I10 - Essential (primary) hypertension Status: Acute Plan: Home Lisinopril 40 mg daily, Nifedipine 30 mg daily, thiazide 50 mg daily , and atenolol 50 mg daily - hold atenolol (8) DM (diabetes mellitus) ICD Codes: E11.9 - Type 2 diabetes mellitus without complications Status: Acute Plan: Takes home metformin 1g/day - low dose SSI for now (9) FEN Plan: Fluids: IVF 80 mls/hr Electrolytes: none, as needed Nutrition: NPO GI prophy: Protonix IV 40 mg/day DVT prophy: SCDs (Rajani Fuentes MD R1) Physician Certification 2 Midnight Certification Type: Admission for Inpatient Services Order for Inpatient Services The services are ordered in accordance with Medicare regulations or non- Medicare payer requirements, as applicable. In the case of services not specified as inpatient-only, they are appropriately provided as inpatient services in accordance with the 2-midnight benchmark. Estimated LOS (days): 2 2 days is the estimated time the patient will need to remain in the hospital, assuming treatment plan goals are met and no additional complications. Post-Hospital Plan: Home (Rajani Fuentes MD R1) Problem Qualifiers (1) Abdominal pain: Qualified Codes: R10.84 - Generalized abdominal pain (2) Chest pain: Qualified Codes: R07.9 - Chest pain, unspecified (3) HLD (hyperlipidemia): Qualified Codes: E78.00 - Pure hypercholesterolemia, unspecified (4) HTN (hypertension): Qualified Codes: I10 - Essential (primary) hypertension (5) DM (diabetes mellitus): Qualified Codes: E13.8 - Other specified diabetes mellitus with unspecified complications Rajani Fuentes MD R1 Apr 22, 2017 09:39 Jil Fenton MD Apr 23, 2017 13:15
[2017-04-22 10:22] LABS: BILIRUBIN, URINE NEG (NEG); BLOOD, URINE NEG (NEG); GLUCOSE,URINE NEG (NEG); KETONE, URINE NEG (NEG); NITRITE,URINE NEG (NEG); PH, URINE 5.5 (5.0-8.5); URINE COLOR YELLOW (YELLW/STRAW); URINE LEUKOCYTE ESTERASE NEG (NEG)
[2017-04-22] MEDS ORDERED: LACTULOSE SYRUP 20 GM/30 ML CUP PO PRN (10:30)
[2017-04-22] MEDS ORDERED: NALOXONE HCL 0.4 MG/ML AMP IV PUSH PRN (10:30)
[2017-04-22] MEDS ORDERED: SODIUM CHLORIDE 0.9% FLUSH 10 ML FLUSH IV FLUSH PRN (10:30)
[2017-04-22] MEDS ORDERED: BISACODYL 10 MG SUPP RECTAL PRN (10:30)
[2017-04-22] MEDS ORDERED: MAGNESIUM HYDROXIDE SUSP 30 ML CUP PO PRN (10:30)
[2017-04-22] MEDS ORDERED: SENNOSIDES 8.6 MG TAB PO PRN (10:30)
[2017-04-22] MEDS ORDERED: DEXTROSE 50% IN WATER 50 ML VIAL(D50) IV PUSH PRN (11:00)
[2017-04-22] MEDS ORDERED: GLUCAGON 1 MG/ML VIAL OTHER PRN (11:00)
[2017-04-22] MEDS: SODIUM CHLOR 0.9% 1000 ML INJ 1,000 ML IV SCH ×2 (11:59→22:36)
[2017-04-22] MEDS: INSULIN ASPART SUPPLEMENTAL SCALE SQ SCH ×3 (12:00→21:00)
[2017-04-22] MEDS: ACETAMINOPHEN/HYDROcodone 325 MG/5 MG TAB PO PRN ×3 (13:11→23:40)
--- NOTE | 2017-04-22 16:23 | PD.CONS ---
HPI History of Present Illness This is a 71 year old male patient who has leukemia. He has been treated in the past and recently his WBC has been climbing again but not felt to require treatment yet. He came to ED because he had upper left quadrant abdominal pain that was moderate and pressure like and then radiated to his left shoulder. He was concerned about having a heart attack so came to ED. He had CT scan and it showed greatly enlarged spleen with adenopathy in retroperitoneum. No gallbladder or biliary problem. He denies fever or chills, nausea or vomiting, melena or BRBPR. He had colonoscopy 4 months ago and it was OK. No EGD performed. Never had ulcers. ROS: no headache, earache, rash. He has shoulder pain on left with more discomfort if he turns his head toward the shoulder. Otherwise complete ros is negative. PFSH Past Medical History leukemia Past Surgical History appendectomy, tonsillectomy Coded Allergies: codeine (Unverified Allergy, Intermediate, HALLUCINATIONS, 04/22/17) Medications Current Medications Medications (Trade) Dose Ordered Sig/Magdalene Route Start Time Stop Time Status Last Admin (NS Flush) 2 ml UNSCH PRN IV FLUSH 04/22/17 10:30 (NS Flush) 2 ml BID IV FLUSH 04/22/17 21:00 (Narcan Inj) 0.4 mg UNSCH PRN IV PUSH 04/22/17 10:30 (Sahra-Colace) 1 tab BID PO 04/22/17 21:00 (Milk Of Magnesia Liq) 30 ml Q12H PRN PO 04/22/17 10:30 (Senokot) 17.2 mg Q12H PRN PO 04/22/17 10:30 (Dulcolax Supp) 10 mg DAILY PRN RECTAL 04/22/17 10:30 (Lactulose Liq) 30 ml DAILY PRN PO 04/22/17 10:30 Sodium Chloride 1,000 ml @ 84 mls/hr [id number] IV 04/22/17 11:00 04/22/17 11:59 (Protonix Inj) 40 mg Q12H IV PUSH 04/22/17 20:00 (Elavil) 50 mg HS PO 04/22/17 21:00 (Procardia Xl) 30 mg DAILY PO 04/23/17 09:00 (Pravachol) 40 mg DAILY PO 04/23/17 09:00 (Prinivil) 40 mg DAILY PO 04/23/17 09:00 (NovoLOG SUPPLEMENTAL SCALE) 1 ACHS SLIDING SCALE SQ 04/22/17 12:00 (D50w (Vial) Inj) 50 ml UNSCH PRN IV PUSH 04/22/17 11:00 (Glucagon Inj) 1 mg UNSCH PRN OTHER 04/22/17 11:00 (Hydrodiuril) 50 mg DAILY PO 04/23/17 09:00 ([place] 5-325 Mg) 1 tab Q4H PRN PO 04/22/17 13:00 04/22/17 13:11 (Flu (Quadrivalent) Vaccine Inj) 0.5 ml ONCE ONCE IM 04/23/17 10:00 04/23/17 10:01 Family History Non contributory Social History Non drinker GI Exam Vitals I&O Vital Signs Date Time Temp Pulse Resp B/P (MAP) Pulse Ox O2 Delivery O2 Flow Rate FiO2 04/22/17 12:30 97.7 84 17 148/80 (102) 98 04/22/17 12:28 04/22/17 10:36 95 04/22/17 10:25 85 18 143/67 (92) 97 Room Air 04/22/17 07:04 16 (100) 96 Room Air 04/22/17 07:04 89 17 139/69 (92) 96 Room Air 143/67 (92) 04/22/17 06:39 18 04/22/17 06:14 97.7 103 16 144/78 (100) 99 Room Air I/O 04/21/17 04/21/17 04/21/17 04/22/17 04/22/17 04/22/17 07:00 15:00 23:00 07:00 15:00 23:00 Intake Total 500 ml Output Total 200 ml Balance 300 ml Intake IV Total 500 ml Output Urine Total 200 ml # Voids 1 Laboratory Test 04/22/17 07:00 04/22/17 09:30 White Blood Count 82.7 TH/MM3 Red Blood Count 4.58 MIL/MM3 Hemoglobin 11.8 GM/DL Hematocrit 36.3 % Mean Corpuscular Volume 79.3 FL Mean Corpuscular Hemoglobin 25.8 PG Mean Corpuscular Hemoglobin Concent 32.5 % Red Cell Distribution Width 17.2 % Platelet Count 115 TH/MM3 Mean Platelet Volume 8.7 FL CBC Comment AUTO DIFF Differential Total Cells Counted 100 Neutrophils % (Manual) 3 % Lymphocytes % 95 % Monocytes % 2 % Neutrophils # (Manual) 2.5 TH/MM3 Differential Comment FINAL DIFF MANUAL Plasma Cells % Smudge Cells PRESENT Platelet Estimate LOW Platelet Morphology Comment NORMAL Prothrombin Time 12.0 SEC Prothromb Time International Ratio 1.1 RATIO Activated Partial Thromboplast Time 28.2 SEC Blood Urea Nitrogen 24 MG/DL Creatinine 1.08 MG/DL Random Glucose 149 MG/DL Total Protein 7.8 GM/DL Albumin 3.8 GM/DL Calcium Level 9.0 MG/DL Magnesium Level 1.9 MG/DL Alkaline Phosphatase 89 U/L Aspartate Amino Transf (AST/SGOT) 24 U/L Alanine Aminotransferase (ALT/SGPT) 27 U/L Total Bilirubin 0.5 MG/DL Sodium Level 139 MEQ/L Potassium Level 3.6 MEQ/L Chloride Level 105 MEQ/L Carbon Dioxide Level 24.6 MEQ/L Anion Gap 9 MEQ/L Estimat Glomerular Filtration Rate 81 ML/MIN Total Creatine Kinase 100 U/L Troponin I LESS THAN 0.02 NG/ML Lipase 97 U/L Urine Color YELLOW Urine Turbidity CLEAR Urine pH 5.5 Urine Specific [place] 1.050 Urine Protein TRACE mg/dL Urine Glucose (UA) NEG mg/dL Urine Ketones NEG mg/dL Urine Occult Blood NEG Urine Nitrite NEG Urine Bilirubin NEG Urine Urobilinogen LESS THAN 2.0 MG/DL Urine Leukocyte Esterase NEG Urine RBC 2 /hpf Urine WBC 1 /hpf Microscopic Urinalysis Comment CULT NOT INDICATED Physical Examination HEENT: Pupils round and reactive to light; normocephalic; atraumatic; no jaundice. Throat is clear. NECK: Neck is supple, no JVD, CHEST: Chest is clear to auscultation and percussion. CARDIAC: Regular rate and rhythm with no murmur gallop or rubs. ABDOMEN: Somewhat tense, mild tenderness especially in LUQ EXTREMITIES: No clubbing, cyanosis, or edema. SKIN: Normal; no rash; no jaundice. REHABILITATION THERAPY TECHNICIAN: No focal deficits; alert and oriented times three. Assessment and Plan Plan Imp: Pain in abdomen consistent with splenic enlargement and leukemia. Rec: Consult Heme Onc No GI intervention at this time. José Manuel Johnston MD Apr 22, 2017 16:23
[2017-04-22 16:36] LABS: HEMATOCRIT 34.2 % (39.0-51.0); HEMOGLOBIN 10.9 GM/DL (13.0-17.0)
--- NOTE | 2017-04-22 19:20 | EKG ---
Date Performed: 04/22/2017 Time Performed: 06:29:14 PTAGE: 71 years EKG: Sinus rhythm NONSPECIFIC T-WAVE ABNORMALITY BORDERLINE ECG PREVIOUS TRACING : 12/15/2016 22.43 Compared to prior tracing no significant change DOCTOR: Drew Merino Interpretating Date/Time 04/22/2017 19:19:37
[2017-04-22] MEDS: AMITRIPTYLINE HCL 50 MG TAB PO SCH (21:00)
[2017-04-22] MEDS: DOCUSATE SODIUM 50 MG/SENNA 8.6 MG TAB PO SCH (21:00)
[2017-04-22] MEDS: SODIUM CHLORIDE 0.9% FLUSH 10 ML FLUSH IV FLUSH SCH (22:36)
[2017-04-22] MEDS: PANTOPRAZOLE SODIUM 40 MG VIAL IV PUSH SCH (23:41)
[2017-04-22 23:53] LABS: HEMATOCRIT 33.6 % (39.0-51.0); HEMOGLOBIN 10.8 GM/DL (13.0-17.0)
[2017-04-23 00:27] VITALS: BP 144/66; PULSE 74; RESP 18; TEMP 96.5; O2SAT 95
[2017-04-23 06:55] LABS: MEAN CELL VOLUME 79.5 FL (80.0-100.0); MEAN CORPUSCULAR HEMOGLOBIN 25.8 PG (27.0-34.0); MEAN CORPUSCULAR HGB CONC 32.4 % (32.0-36.0); MEAN PLATELET VOLUME 8.5 FL (7.0-11.0); PLATELET COUNT 95 TH/MM3 (150-450); RED BLOOD COUNT 4.28 MIL/MM3 (4.50-5.90); RED CELL DISTRIBUTION WIDTH 17.4 % (11.6-17.2); WHITE BLOOD COUNT 46.6 TH/MM3 (4.0-11.0)
[2017-04-23 07:02] LABS: ALBUMIN 3.3 GM/DL (3.4-5.0); AST (GOT) 23 U/L (15-37); BICARBONATE 26.6 MEQ/L (21.0-32.0); BLOOD UREA NITROGEN 18 MG/DL (7-18); CHLORIDE 106 MEQ/L (98-107); CREATININE 1.01 MG/DL (0.60-1.30); GLOMERULAR FILTRATION RATE 88 ML/MIN (>89); GLUCOSE,RANDOM 98 MG/DL (74-106); SODIUM (NA) 140 MEQ/L (136-145)
[2017-04-23 07:03] LABS: ALT (GPT) 24 U/L (12-78)
[2017-04-23 07:05] LABS: ALKALINE PHOSPHATASE 74 U/L (45-117); TOTAL BILIRUBIN ADULT 0.6 MG/DL (0.2-1.0)
[2017-04-23 08:00] VITALS: BP 152/79; PULSE 80; RESP 17; TEMP 97.5; O2SAT 98
[2017-04-23] MEDS: INSULIN ASPART SUPPLEMENTAL SCALE SQ SCH ×4 (08:00→19:28)
[2017-04-23] MEDS: NIFEdipine 30 MG SUSTAINED RELEASE TAB PO SCH (08:22)
[2017-04-23] MEDS: PANTOPRAZOLE SODIUM 40 MG VIAL IV PUSH SCH (08:22)
[2017-04-23] MEDS: DOCUSATE SODIUM 50 MG/SENNA 8.6 MG TAB PO SCH ×2 (08:22→19:26)
[2017-04-23] MEDS: LISINOPRIL 20 MG TAB PO SCH (08:23)
[2017-04-23] MEDS: ACETAMINOPHEN/HYDROcodone 325 MG/5 MG TAB PO PRN ×3 (08:24→17:36)
[2017-04-23] MEDS: PRAVASTATIN SOD 40 MG TAB PO SCH (08:24)
[2017-04-23] MEDS: HYDROCHLOROTHIAZIDE 50 MG TAB PO SCH (08:24)
[2017-04-23] MEDS: SODIUM CHLORIDE 0.9% FLUSH 10 ML FLUSH IV FLUSH SCH ×2 (08:25→19:26)
--- NOTE | 2017-04-23 09:18 | HHI.HP ---
[facility] Service Family Medicine Primary Care Physician [facility] Admission Diagnosis gi bleed, abdominal pain Diagnoses: (1) Abdominal pain Diagnosis: Principal (2) Chest pain Diagnosis: Principal (3) Melena Diagnosis: Principal (4) CLL (chronic lymphocytic leukemia) Diagnosis: Principal (5) HLD (hyperlipidemia) Diagnosis: Principal (6) Arthritis Diagnosis: Principal (7) HTN (hypertension) Diagnosis: Principal (8) DM (diabetes mellitus) Diagnosis: Principal (9) FEN Diagnosis: Principal International Travel<30 Days: No Contact w/Intl Traveler<30days: No Known Affected Area: No History of Present Illness Mr Carbajal is a 71 y/o M w/hx of HTN, HLD, CLL and DM2 who presents w/ abdominal pain and melena. Yesterday, patient had a bloated feeling and diffuse 8/10 abdominal pain in stomach, which caused him to take shallow breaths. He bought some peptobismol, drank the whole bottle but saw no improvement. Pain radiated to shoulder, and intensity of pain brought him to hospital. Feels sharp pain when moving shoulder , no abdominal pain now. Noticed black stool late yesterday afternoon, no diarrhea, or loose stools associated with it. Denies lightheadedness, palpitations, or dizziness. Notices his balance is off a little. Was hospitalized a year ago and diagnosed with leukemia. Remembers having abdominal pain before and taking milk of magnesia but no hx of melena of GI bleed that the patient can recall. Primary care doctor is Dr. Pedro in [facility]. Has a [place] doctor, but can't think of his name. Was supposed to see him today. Last colonoscopy was 9 months ago, no abnormal findings. No hx of abnormal colonoscopy. Sees oncologist Q6 months at the [place]. Has not been undergoing treatment for his CLL due to not warranting it. Last appointment was last week, was told that his labs looked good but that he would need to follow up q3 months. Denies weight loss, night sweats, or fevers. Black stools can be caused by peptobismol but per report he may have been heme positive in the ED. He was taking NSAIDS at home and these were stopped and he was given Protonix. He has no abdominal pain today and feels well. His chest pain is in his shoulder on the left. His muscles are tight and he has pain when moving his shoulder. He has no substernal cheat pain and no sxs of angina. Review of Systems Other Constitutional: COMPLAINS OF: Weight loss (intentional), DENIES: Fever, Change in appetite Endocrine: DENIES: Polydipsia, Polyuria Eyes: DENIES: Blurred vision, Vision loss Ears, nose, mouth, throat: DENIES: Hearing loss, Throat pain, Epistaxis Respiratory: DENIES: Cough, Shortness of breath Cardiovascular: DENIES: Chest pain, Dyspnea on Exertion Gastrointestinal: DENIES: Diarrhea, Nausea, Vomiting Genitourinary: DENIES: Urinary frequency, Urinary incontinence, Penile Discharge Musculoskeletal: DENIES: Muscle aches, Stiffness Integumentary: DENIES: Abnormal pigmentation, Rash Hematologic/lymphatic: DENIES: Bruising, Lymphadenopathy Neurologic: COMPLAINS OF: Headache, DENIES: Localized weakness Past Family Social History Past Medical History Arthritis DM 2 CLL (11/2015 dx on admission for R. hip and left flank pain with hematuria. WBC 13.6 w/27% possible blasts. 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, CT C/A/P = No LAD or HSM) HLD HTN Kidney stones Prostate ca (Cryotherapy 2006, XRT in [place]) - 2004 Past Surgical History Appendectomy Prostate bx R leg fracture Tonsillectomy Allergies: Coded Allergies: codeine (Unverified Allergy, Intermediate, HALLUCINATIONS, 04/22/17) Family History Mom: 56, brain cancer Dad: 92, prostate cancer Sister: 50, brain cancer, mets to lungs Social History No ETOH hx or current use, no drug use, no smoking Physical Exam Vital Signs Vital Signs Date Time Temp Pulse Resp B/P (MAP) Pulse Ox O2 Delivery O2 Flow Rate FiO2 04/23/17 08:00 97.5 80 17 152/79 (103) 98 04/23/17 00:27 96.5 74 18 144/66 (92) 95 04/22/17 20:00 98.4 81 18 153/86 (108) 98 04/22/17 18:12 96 21 04/22/17 14:00 98.1 76 16 130/73 (92) 96 04/22/17 12:30 97.7 84 17 148/80 (102) 98 04/22/17 12:28 04/22/17 10:36 95 04/22/17 10:25 85 18 143/67 (92) 97 Room Air Physical Exam GENERAL: This is a well-nourished, well-developed patient, in no apparent distress. He only has shoulder pain when he moves that arm otherwise no abdominal pain SKIN: No rashes, ecchymoses or lesions. Cool and dry. HEAD: Atraumatic. Normocephalic. EYES: Pupils equal round and reactive. Extraocular motions intact. No scleral icterus. No injection or drainage. ENT: Nose without bleeding, purulent drainage or septal hematoma. Airway patent. NECK: Trachea midline. No JVD or lymphadenopathy. Tenderness to palpation of left trapezius and anterior upper shoulder. CARDIOVASCULAR: Regular rate and rhythm without murmurs, gallops, or rubs. RESPIRATORY: Clear to auscultation. Breath sounds equal bilaterally. No wheezes , rales, or rhonchi. GASTROINTESTINAL: Abdomen soft, slightly distended. LUQ tenderness and RUQ tenderness. splenomegaly noted with palpable spleen nearly to mid abdomen . MUSCULOSKELETAL: Extremities without clubbing, cyanosis, or edema. No joint tenderness, effusion, or edema noted. No calf tenderness. Negative Homans sign bilaterally. NEUROLOGICAL: Awake and alert. Motor and sensory grossly within normal limits. Normal speech. Laboratory Laboratory Tests Test 04/22/17 09:30 04/22/17 15:55 04/22/17 21:28 04/22/17 23:30 Urine Color YELLOW Urine Turbidity CLEAR Urine pH 5.5 Urine Specific [place] 1.050 Urine Protein TRACE Urine Glucose (UA) NEG Urine Ketones NEG Urine Occult Blood NEG Urine Nitrite NEG Urine Bilirubin NEG Urine Urobilinogen LESS THAN 2.0 Urine Leukocyte Esterase NEG Urine RBC 2 Urine WBC 1 Microscopic Urinalysis Comment CULT NOT INDICATED Hemoglobin 10.9 10.8 Hematocrit 34.2 33.6 Troponin I LESS THAN 0.02 LESS THAN 0.02 Test 04/23/17 06:15 White Blood Count 46.6 Red Blood Count 4.28 Hemoglobin 11.0 Hematocrit 34.0 Mean Corpuscular Volume 79.5 Mean Corpuscular Hemoglobin 25.8 Mean Corpuscular Hemoglobin Concent 32.4 Red Cell Distribution Width 17.4 Platelet Count 95 Mean Platelet Volume 8.5 CBC Comment AUTO DIFF Blood Urea Nitrogen 18 Creatinine 1.01 Random Glucose 98 Total Protein 7.0 Albumin 3.3 Calcium Level 9.0 Alkaline Phosphatase 74 Aspartate Amino Transf (AST/SGOT) 23 Alanine Aminotransferase (ALT/SGPT) 24 Total Bilirubin 0.6 Sodium Level 140 Potassium Level 3.7 Chloride Level 106 Carbon Dioxide Level 26.6 Anion Gap 7 Estimat Glomerular Filtration Rate 88 Result Diagram: 04/23/17 0615 04/23/17 0615 Imaging Last 24 hours Impressions Chest X-Ray 04/22/17 0702 Signed Impressions: Service Date/Time: Saturday, April 22, 2017 07:09 - CONCLUSION: No significant change compared to 04/06/16. Timothy Morse MD Abdomen/Pelvis CT 04/22/17 0000 Signed Impressions: Service Date/Time: Saturday, April 22, 2017 08:23 - CONCLUSION: 1. New splenomegaly and retroperitoneal adenopathy. This is worrisome for a myeloproliferative disorder. 2. Low density lesion involving the spleen which is poorly characterized on this exam. This is new from the prior study. 3. 2 small pulmonary nodules which are new from the prior study. They are poorly characterize on this exam. There could relate to a myeloproliferative disorder. Consider full CT of the thorax to evaluate the remaining lungs. MD Brenda Benítez Jr. VTE Risk Assessment Caprini VTE Risk Assessment: Mod/High Risk (score >= 2) VTE Pharm Contraindication: High risk for bleeding Caprini Risk Assessment Model Point Value = 1 Point Value = 2 Point Value = 3 Point Value = 5 Age 41-60 Minor surgery BMI > 25 kg/m2 Swollen legs Varicose veins or History of unexplained or recurrent spontaneous Oral contraceptives or hormone replacement Sepsis (< 1 month) Serious lung disease, including pneumonia (< 1 month) Abnormal pulmonary function Acute myocardial infarction Congestive heart failure (< 1 month) History of inflammatory bowel disease Medical patient at bed rest Age 61-74 Arthroscopic surgery Major open surgery (> 45 min) Laparoscopic surgery (> 45 min) Malignancy Confined to bed (> 72 hours) Immobilizing plaster cast Central venous access Age >= 75 History of VTE Family history of VTE Factor V Leiden Prothrombin [id number] Lupus anticoagulant Anticardiolipin antibodies Elevated serum homocysteine Heparin-induced thrombocytopenia Other congenital or acquired thrombophilia Stroke (< 1 month) Elective arthroplasty Hip, pelvis, or leg fracture Acute spinal cord injury (< 1 month) Prophylaxis Regimen Total Risk Factor Score Risk Level Prophylaxis Regimen 0-1 Low Early ambulation 2 Moderate Order ONE of the following: *Sequential Compression Device (SCD) *Heparin 5000 units SQ BID 3-4 Higher Order ONE of the following medications: *Heparin 5000 units SQ TID *Enoxaparin/Lovenox 40 mg SQ daily (WT < 150 kg, CrCl > 30 mL/min) *Enoxaparin/Lovenox 30 mg SQ daily (WT < 150 kg, CrCl > 10-29 mL/min) *Enoxaparin/Lovenox 30 mg SQ BID (WT < 150 kg, CrCl > 30 mL/min) AND/OR *Sequential Compression Device (SCD) 5 or more Highest Order ONE of the following medications: *Heparin 5000 units SQ TID (Preferred with Epidurals) *Enoxaparin/Lovenox 40 mg SQ daily (WT < 150 kg, CrCl > 30 mL/min) *Enoxaparin/Lovenox 30 mg SQ daily (WT < 150 kg, CrCl > 10-29 mL/min) *Enoxaparin/Lovenox 30 mg SQ BID (WT < 150 kg, CrCl > 30 mL/min) AND *Sequential Compression Device (SCD) Assessment and Plan Assessment and Plan Patient is a 71 y/o M w/hx of CLL who presents for diffuse abdominal pain and melena. Found to have guaic+ stools in the ED. Placed on IV protonix 40 mg BID, IVF, and NPO. D/C'd his home meloxicam and aspirin. Abdominal tenderness to the upper quadrants and splenomegaly observed on physical exam. his abdominal pain is gone today. Patient may have a chronic underlying abdominal pain from his CLL but he feels fine this am. CT abdomen shows splenomegaly, retroperitoneal adenopathy, and new pulmonary nodules. Will contact his oncologist for medical records. Patient may need to follow up with his oncologist for repeat assessment and more targeted treatment. Can encourage him to see his Oncologist and get these CT results to them. It is a hard decision to make about starting treatment for CLL so his Oncologist would need to decide. Problem List: (1) Abdominal pain ICD Codes: R10.9 - Unspecified abdominal pain Status: Acute Plan: Initially came into the ED with diffuse abdominal pain and distension that has now resolved. Pain is mainly concentrated in the left upper quadrant. Splenomegaly on physical exam. Guaic + stool. -GI consulted and pt does not need colonoscopy. he did have recent colonoscopy and his H/H is stable. He can avoid NSAIDS and take Protonix to prevent ulcers - IV protonix 40 mg BID - may eat today - IVF 80 mls/hr - D/C all NSAIDs - SCDs only - HH Q6H He wants to go home today and is stable (2) Chest pain ICD Codes: R07.9 - Chest pain, unspecified Plan: EKG normal on admission. Patient complains of upper left chest pain radiating to the left shoulder, worse with movement and deep breaths. Likely not cardiac related but will do ACS r/o. On exam, patient has tenderness and muscle spasm of left trapezius. - trended troponins and EKG - Lortab and heating pad for pain control, consider muscle relaxer as well (3) Melena ICD Codes: K92.1 - Melena Status: Acute Plan: Per patient hx, noted x2. See plan above (4) CLL (chronic lymphocytic leukemia) ICD Codes: C91.10 - Chronic lymphocytic leukemia of B-cell type not having achieved remission Status: Acute Plan: Diagnosed in 2016. Follows w/oncology at the [place]. Not currently being treated but being monitored via [id number] appointments. WBC count today of 82.7 - Requested medical records from his oncologist His Oncologist will need to decide when to start treatment (5) HLD (hyperlipidemia) ICD Codes: E78.5 - Hyperlipidemia, unspecified Plan: Con't home statin (6) Arthritis ICD Codes: M19.90 - Unspecified osteoarthritis, unspecified site Plan: Takes baby ASA and Meloxicam 15 mg daily. Hold all NSAIDs for now. (7) HTN (hypertension) ICD Codes: I10 - Essential (primary) hypertension Status: Acute Plan: Home Lisinopril 40 mg daily, Nifedipine 30 mg daily, thiazide 50 mg daily , and atenolol 50 mg daily - hold atenolol (8) DM (diabetes mellitus) ICD Codes: E11.9 - Type 2 diabetes mellitus without complications Status: Acute Plan: Takes home metformin 1g/day - low dose SSI for now (9) FEN Plan: Fluids: IVF 80 mls/hr Electrolytes: none, as needed Nutrition: NPO GI prophy: Protonix IV 40 mg/day DVT prophy: SCDs Problem Qualifiers (1) Abdominal pain: Qualified Codes: R10.84 - Generalized abdominal pain (2) Chest pain: Qualified Codes: R07.9 - Chest pain, unspecified (3) HLD (hyperlipidemia): Qualified Codes: E78.00 - Pure hypercholesterolemia, unspecified (4) HTN (hypertension): Qualified Codes: I10 - Essential (primary) hypertension (5) DM (diabetes mellitus): Qualified Codes: E13.8 - Other specified diabetes mellitus with unspecified complications Jil Fenton MD Apr 23, 2017 09:18
[2017-04-23 09:50] LABS: MONOCYTES 5 % (0-8); NEUTROPHIL # MANUAL DIFF 1.9 TH/MM3 (1.8-7.7); POLYS (SEG NEUTROPHILS) 4 % (16-70)
[2017-04-23 09:53] LABS: LYMPHOCYTES 90 % (9-44)
[2017-04-23 09:54] LABS: SMUDGE CELLS PRESENT PRESENT
[2017-04-23] MEDS ORDERED: INFLUENZA VIRUS VACCINE (QUADRIVALENT) 0.5 ML SYR IM ONE (10:00)
[2017-04-23 12:00] VITALS: BP 147/80; PULSE 79; RESP 17; TEMP 97.5; O2SAT 97
[2017-04-23] MEDS: SODIUM CHLOR 0.9% 1000 ML INJ 1,000 ML IV SCH ×3 (12:22→21:24)
--- NOTE | 2017-04-23 12:47 | HHI.GIFU ---
Subjective Remarks Pt feels about the same. LUQ fullness. He reports melenic stools last few days at home. Stool is heme positive on rectal exam in ED. He has had a colonoscopy recently but no EGD. We will perform EGD today. Objective Vitals I&O Vital Signs Date Time Temp Pulse Resp B/P (MAP) Pulse Ox O2 Delivery O2 Flow Rate FiO2 04/23/17 08:00 97.5 80 17 152/79 (103) 98 04/23/17 00:27 96.5 74 18 144/66 (92) 95 04/22/17 20:00 98.4 81 18 153/86 (108) 98 04/22/17 18:12 96 21 04/22/17 14:00 98.1 76 16 130/73 (92) 96 I/O 04/22/17 04/22/17 04/22/17 04/23/17 04/23/17 04/23/17 07:00 15:00 23:00 07:00 15:00 23:00 Intake Total 500 ml 1000 ml 1000 ml Output Total 200 ml Balance 300 ml 1000 ml 1000 ml Intake Oral 0 ml IV Total 500 ml 1000 ml 1000 ml Output Urine Total 200 ml # Voids 1 4 4 # Bowel Movements 0 Laboratory Laboratory Tests Test 04/22/17 15:55 04/22/17 21:28 04/22/17 23:30 04/23/17 06:15 Hemoglobin 10.9 10.8 11.0 Hematocrit 34.2 33.6 34.0 Troponin I LESS THAN 0.02 LESS THAN 0.02 White Blood Count 46.6 Red Blood Count 4.28 Mean Corpuscular Volume 79.5 Mean Corpuscular Hemoglobin 25.8 Mean Corpuscular Hemoglobin Concent 32.4 Red Cell Distribution Width 17.4 Platelet Count 95 Mean Platelet Volume 8.5 CBC Comment AUTO DIFF Differential Total Cells Counted 100 Neutrophils % (Manual) 4 Lymphocytes % 90 Monocytes % 5 Eosinophils % 1 Neutrophils # (Manual) 1.9 Differential Comment FINAL DIFF MANUAL Smudge Cells PRESENT Platelet Estimate LOW Platelet Morphology Comment NORMAL Red Cell Morphology Comment NORMAL Blood Urea Nitrogen 18 Creatinine 1.01 Random Glucose 98 Total Protein 7.0 Albumin 3.3 Calcium Level 9.0 Alkaline Phosphatase 74 Aspartate Amino Transf (AST/SGOT) 23 Alanine Aminotransferase (ALT/SGPT) 24 Total Bilirubin 0.6 Sodium Level 140 Potassium Level 3.7 Chloride Level 106 Carbon Dioxide Level 26.6 Anion Gap 7 Estimat Glomerular Filtration Rate 88 Physical Exam HEENT: Pupils round and reactive to light; normocephalic; atraumatic; no jaundice. Throat is clear. NECK: Neck is supple, no JVD, no lymphadenopathy. CHEST: Chest is clear to auscultation and percussion. CARDIAC: Regular rate and rhythm with no murmur gallop or rubs. ABDOMEN: Mildly tender fullness in LUQ consistent with enlarged spleen. EXTREMITIES: No clubbing, cyanosis, or edema. SKIN: Normal; no rash; no jaundice. HEDGE FUND PRINCIPAL: No focal deficits; alert and oriented times three. Assessment and Plan Plan Imp: Pain in abdomen consistent with splenic enlargement and leukemia. Melena and heme pos stool. Rec: Consult Heme Onc EGD today consider transfer to [facility] in [place] as he may need chemotherapy to shrink his spleen. José Manuel Johnston MD Apr 23, 2017 12:47
--- NOTE | 2017-04-23 12:47 | HHI.GIFU ---
Subjective Remarks Pt feels about the same. LUQ fullness. He reports melenic stools last few days at home. Stool is heme positive on rectal exam in ED. He has had a colonoscopy recently but no EGD. We will perform EGD today. Objective Vitals I&O Vital Signs Date Time Temp Pulse Resp B/P (MAP) Pulse Ox O2 Delivery O2 Flow Rate FiO2 04/23/17 08:00 97.5 80 17 152/79 (103) 98 04/23/17 00:27 96.5 74 18 144/66 (92) 95 04/22/17 20:00 98.4 81 18 153/86 (108) 98 04/22/17 18:12 96 21 04/22/17 14:00 98.1 76 16 130/73 (92) 96 I/O 04/22/17 04/22/17 04/22/17 04/23/17 04/23/17 04/23/17 07:00 15:00 23:00 07:00 15:00 23:00 Intake Total 500 ml 1000 ml 1000 ml Output Total 200 ml Balance 300 ml 1000 ml 1000 ml Intake Oral 0 ml IV Total 500 ml 1000 ml 1000 ml Output Urine Total 200 ml # Voids 1 4 4 # Bowel Movements 0 Laboratory Laboratory Tests Test 04/22/17 15:55 04/22/17 21:28 04/22/17 23:30 04/23/17 06:15 Hemoglobin 10.9 10.8 11.0 Hematocrit 34.2 33.6 34.0 Troponin I LESS THAN 0.02 LESS THAN 0.02 White Blood Count 46.6 Red Blood Count 4.28 Mean Corpuscular Volume 79.5 Mean Corpuscular Hemoglobin 25.8 Mean Corpuscular Hemoglobin Concent 32.4 Red Cell Distribution Width 17.4 Platelet Count 95 Mean Platelet Volume 8.5 CBC Comment AUTO DIFF Differential Total Cells Counted 100 Neutrophils % (Manual) 4 Lymphocytes % 90 Monocytes % 5 Eosinophils % 1 Neutrophils # (Manual) 1.9 Differential Comment FINAL DIFF MANUAL Smudge Cells PRESENT Platelet Estimate LOW Platelet Morphology Comment NORMAL Red Cell Morphology Comment NORMAL Blood Urea Nitrogen 18 Creatinine 1.01 Random Glucose 98 Total Protein 7.0 Albumin 3.3 Calcium Level 9.0 Alkaline Phosphatase 74 Aspartate Amino Transf (AST/SGOT) 23 Alanine Aminotransferase (ALT/SGPT) 24 Total Bilirubin 0.6 Sodium Level 140 Potassium Level 3.7 Chloride Level 106 Carbon Dioxide Level 26.6 Anion Gap 7 Estimat Glomerular Filtration Rate 88 Physical Exam HEENT: Pupils round and reactive to light; normocephalic; atraumatic; no jaundice. Throat is clear. NECK: Neck is supple, no JVD, no lymphadenopathy. CHEST: Chest is clear to auscultation and percussion. CARDIAC: Regular rate and rhythm with no murmur gallop or rubs. ABDOMEN: Mildly tender fullness in LUQ consistent with enlarged spleen. EXTREMITIES: No clubbing, cyanosis, or edema. SKIN: Normal; no rash; no jaundice. FLOOR CLEANER: No focal deficits; alert and oriented times three. Assessment and Plan Plan Imp: Pain in abdomen consistent with splenic enlargement and leukemia. Melena and heme pos stool. Rec: Consult Heme Onc EGD today consider transfer to [facility] in [place] as he may need chemotherapy to shrink his spleen. José Manuel Johnston MD Apr 23, 2017 12:47
[2017-04-23] MEDS ORDERED: CYCLOBENZAPRINE HCL 10 MG TAB PO ONE (13:00)
--- NOTE | 2017-04-23 14:25 | HHI.GIFU ---
Subjective Remarks EGD with biopsy performed. Gastritis, mild, rule out H Pylori. No ulcers or tumor seen. Tolerated well. Objective Vitals I&O Vital Signs Date Time Temp Pulse Resp B/P (MAP) Pulse Ox O2 Delivery O2 Flow Rate FiO2 04/23/17 12:00 97.5 79 17 147/80 (102) 97 04/23/17 08:00 97.5 80 17 152/79 (103) 98 04/23/17 00:27 96.5 74 18 144/66 (92) 95 04/22/17 20:00 98.4 81 18 153/86 (108) 98 04/22/17 18:12 96 21 I/O 04/22/17 04/22/17 04/22/17 04/23/17 04/23/17 04/23/17 07:00 15:00 23:00 07:00 15:00 23:00 Intake Total 500 ml 1000 ml 1000 ml Output Total 200 ml Balance 300 ml 1000 ml 1000 ml Intake Oral 0 ml IV Total 500 ml 1000 ml 1000 ml Output Urine Total 200 ml # Voids 1 4 4 # Bowel Movements 0 Laboratory Laboratory Tests Test 04/22/17 15:55 04/22/17 21:28 04/22/17 23:30 04/23/17 06:15 Hemoglobin 10.9 10.8 11.0 Hematocrit 34.2 33.6 34.0 Troponin I LESS THAN 0.02 LESS THAN 0.02 White Blood Count 46.6 Red Blood Count 4.28 Mean Corpuscular Volume 79.5 Mean Corpuscular Hemoglobin 25.8 Mean Corpuscular Hemoglobin Concent 32.4 Red Cell Distribution Width 17.4 Platelet Count 95 Mean Platelet Volume 8.5 CBC Comment AUTO DIFF Differential Total Cells Counted 100 Neutrophils % (Manual) 4 Lymphocytes % 90 Monocytes % 5 Eosinophils % 1 Neutrophils # (Manual) 1.9 Differential Comment FINAL DIFF MANUAL Smudge Cells PRESENT Platelet Estimate LOW Platelet Morphology Comment NORMAL Red Cell Morphology Comment NORMAL Blood Urea Nitrogen 18 Creatinine 1.01 Random Glucose 98 Total Protein 7.0 Albumin 3.3 Calcium Level 9.0 Alkaline Phosphatase 74 Aspartate Amino Transf (AST/SGOT) 23 Alanine Aminotransferase (ALT/SGPT) 24 Total Bilirubin 0.6 Sodium Level 140 Potassium Level 3.7 Chloride Level 106 Carbon Dioxide Level 26.6 Anion Gap 7 Estimat Glomerular Filtration Rate 88 Physical Exam HEENT: Pupils round and reactive to light; normocephalic; atraumatic; no jaundice. Throat is clear. NECK: Neck is supple, no JVD, no lymphadenopathy. CHEST: Chest is clear to auscultation and percussion. CARDIAC: Regular rate and rhythm with no murmur gallop or rubs. ABDOMEN: Mildly tender fullness in LUQ consistent with enlarged spleen. EXTREMITIES: No clubbing, cyanosis, or edema. SKIN: Normal; no rash; no jaundice. CASTING AND LOCKER ROOM SERVICER: No focal deficits; alert and oriented times three. Assessment and Plan Plan Imp: Pain in abdomen consistent with splenic enlargement and leukemia. Melena and heme pos stool. EGD today normal except for mild gastritis. Biopsy to rule out H Pylori. Rec: Consult Heme Onc Regular diet. consider transfer to [facility] in [place] as he may need chemotherapy to shrink his spleen. José Manuel Johnsotn MD Apr 23, 2017 14:25
[2017-04-23] MEDS ORDERED: DO NOT ADM ANY ANTICOAGULANT DRUGS PRN (14:32)
[2017-04-23 16:00] VITALS: BP 151/73; PULSE 79; RESP 17; TEMP 97.4; O2SAT 94
[2017-04-23] MEDS: AMITRIPTYLINE HCL 50 MG TAB PO SCH (19:26)
[2017-04-23 20:00] VITALS: BP 133/66; PULSE 86; RESP 22; TEMP 96.9; O2SAT 93
[2017-04-23 21:35] VITALS: O2SAT 95
[2017-04-24] VITALS: BP 131/63; PULSE 88; RESP 22; TEMP 98.8; O2SAT 93
[2017-04-24] MEDS: SODIUM CHLOR 0.9% 1000 ML INJ 1,000 ML IV SCH (04:33)
[2017-04-24 06:35] LABS: HEMATOCRIT 38.1 % (39.0-51.0); HEMOGLOBIN 12.4 GM/DL (13.0-17.0); MEAN CELL VOLUME 79.4 FL (80.0-100.0); MEAN CORPUSCULAR HEMOGLOBIN 25.8 PG (27.0-34.0); MEAN CORPUSCULAR HGB CONC 32.6 % (32.0-36.0); MEAN PLATELET VOLUME 8.6 FL (7.0-11.0); PLATELET COUNT 111 TH/MM3 (150-450); RED CELL DISTRIBUTION WIDTH 17.6 % (11.6-17.2); WHITE BLOOD COUNT 73.6 TH/MM3 (4.0-11.0)
[2017-04-24] MEDS: NIFEdipine 30 MG SUSTAINED RELEASE TAB PO SCH (07:35)
[2017-04-24] MEDS: LISINOPRIL 20 MG TAB PO SCH (07:36)
[2017-04-24] MEDS: HYDROCHLOROTHIAZIDE 50 MG TAB PO SCH (07:36)
[2017-04-24] MEDS: DOCUSATE SODIUM 50 MG/SENNA 8.6 MG TAB PO SCH (07:38)
[2017-04-24] MEDS: PRAVASTATIN SOD 40 MG TAB PO SCH (07:38)
[2017-04-24] MEDS: ACETAMINOPHEN/HYDROcodone 325 MG/5 MG TAB PO PRN (07:40)
[2017-04-24 08:00] VITALS: BP 141/69; PULSE 89; RESP 18; TEMP 98.9; O2SAT 95
[2017-04-24] MEDS ORDERED: PANTOPRAZOLE SOD 40 MG DELAYED RELEASE TAB PO SCH (09:00)
--- NOTE | 2017-04-24 10:20 | HHI.FPPN ---
Subjective Remarks No acute events overnight. Patient states he had a bowel movement this morning that was black. Hemoccult obtained. He states he otherwise feels well. Denies abdominal pain, CP, SOB, cough, N/V, fevers or chills. Ambulating without difficulty. Tolerating diet. (Remington Vinson MD R2) Objective Vitals Vital Signs Date Time Temp Pulse Resp B/P (MAP) Pulse Ox O2 Delivery O2 Flow Rate FiO2 04/24/17 08:00 98.9 89 18 141/69 (93) 95 04/24/17 00:00 98.8 88 22 131/63 (85) 93 04/23/17 21:35 95 04/23/17 20:00 96.9 86 22 133/66 (88) 93 04/23/17 16:00 97.4 79 17 151/73 (99) 94 04/23/17 14:45 72 15 109/55 (73) 96 04/23/17 14:30 97.8 76 14 112/55 (74) 99 04/23/17 12:00 97.5 79 17 147/80 (102) 97 I/O 04/23/17 04/23/17 04/23/17 04/24/17 04/24/17 04/24/17 07:00 15:00 23:00 07:00 15:00 23:00 Intake Total 1200 ml 120 ml 1480 ml Output Total 1125 ml Balance 1200 ml 120 ml 355 ml Intake Oral 120 ml 480 ml IV Total 1000 ml 1000 ml Other 200 ml Output Urine Total 1125 ml # Voids 4 6 # Bowel Movements 0 0 (Remington Vinson MD R2) Result Diagram: 04/24/17 0614 04/23/17 0615 Objective Remarks GENERAL: This is a well-nourished, well-developed patient, in no apparent distress. SKIN: No rashes, ecchymoses or lesions. Cool and dry. HEAD: Atraumatic. Normocephalic. EYES: Extraocular motions intact. No scleral icterus. No injection or drainage. ENT: Nose without bleeding, purulent drainage or septal hematoma. Airway patent. NECK: Trachea midline. No JVD or lymphadenopathy. Tenderness to palpation of left trapezius and anterior upper shoulder. CARDIOVASCULAR: Regular rate and rhythm without murmurs, gallops, or rubs. RESPIRATORY: Clear to auscultation. Breath sounds equal bilaterally. No wheezes , rales, or rhonchi. GASTROINTESTINAL: Abdomen soft, nontender, nondistended. splenomegaly noted with palpable spleen nearly to mid abdomen . MUSCULOSKELETAL: Extremities without clubbing, cyanosis, or edema. No joint tenderness, effusion, or edema noted. No calf tenderness. NEUROLOGICAL: Awake and alert. Motor and sensory grossly within normal limits. Normal speech. (Remington Vinson MD R2) A/P Assessment and Plan Patient is a 71 y/o M w/hx of CLL who presents for diffuse abdominal pain and melena. Found to have guaiac+ stools in the ED. Patient may have a chronic underlying abdominal pain from his CLL but he feels fine this am. CT abdomen shows splenomegaly, retroperitoneal adenopathy, and new pulmonary nodules. Will contact his oncologist for medical records. Patient may need to follow up with his oncologist for repeat assessment and more targeted treatment. Can encourage him to see his Oncologist and get these CT results to them. It is a hard decision to make about starting treatment for CLL so his Oncologist would need to decide. (Remington Vinson MD R2) Attending Attestation Patient seen and examined. Case reviewed and discussed with the resident team. Agree with plan of care as discussed with me and documented in the resident note. He feels well and is up ambulating and wishes to go home. He has no weakness, excessive fatigue or B sxs suggestive of worsening CLL. We discussed that treatment for CLL has some risks and problems and normally people are not treated until they meet certain criteria as most go years before needing any chemo. He will follow up with his own Oncologist as she knows him best. (Jil Fenton MD) Problem List: (1) Abdominal pain ICD Codes: R10.9 - Unspecified abdominal pain Status: Acute Plan: Initially came into the ED with diffuse abdominal pain and distension that has now resolved. Splenomegaly on physical exam. Guaiac + stool. Hemoccult obtained given patient continuing to report very black stools - GI consulted and pt does not need colonoscopy. He did have recent colonoscopy and his H/H is stable. He can avoid NSAIDS and take Protonix to prevent ulcers - Regular diet - IVF 80 mls/hr - D/C all NSAIDs - SCDs only - EGD 04/23 by GI showing mild gastritis, biopsy obtained to rule out H pylori, no ulcers or tumor seen. (2) Chest pain ICD Codes: R07.9 - Chest pain, unspecified Plan: EKG normal on admission. Patient complains of upper left chest pain radiating to the left shoulder, worse with movement and deep breaths. Likely not cardiac related Troponins and EKG obtained x3 all negative On exam, patient has tenderness and muscle spasm of left trapezius - Lortab and heating pad for pain control (3) CLL (chronic lymphocytic leukemia) ICD Codes: C91.10 - Chronic lymphocytic leukemia of B-cell type not having achieved remission Status: Chronic Plan: Diagnosed in 2016. [facility] Not currently being treated but being monitored via [id number] appointments. WBC count today of 73.6 - Requested medical records from his oncologist His Oncologist will need to decide when to start treatment (4) HLD (hyperlipidemia) ICD Codes: E78.5 - Hyperlipidemia, unspecified Status: Chronic Plan: Continue home statin (5) Arthritis ICD Codes: M19.90 - Unspecified osteoarthritis, unspecified site Status: Chronic Plan: Hold all NSAIDs for now (6) HTN (hypertension) ICD Codes: I10 - Essential (primary) hypertension Status: Acute Plan: Continue home hydrochlorothiazide, lisinopril, nifedipine Hold home atenolol (7) DM (diabetes mellitus) ICD Codes: E11.9 - Type 2 diabetes mellitus without complications Status: Acute Plan: Continue Accu-Cheks Hold home metformin Low-dose insulin sliding scale (8) FEN Plan: Fluids: Normal saline at maintenance rate Electrolytes: Within normal limits Nutrition: Regular GI ppx: Protonix 40 mg po daily DVT ppx: b/l SCDs (Remington Vinson MD R2) Problem Qualifiers (1) Abdominal pain: Qualified Codes: R10.84 - Generalized abdominal pain (2) Chest pain: Qualified Codes: R07.9 - Chest pain, unspecified (3) HLD (hyperlipidemia): Qualified Codes: E78.00 - Pure hypercholesterolemia, unspecified (4) HTN (hypertension): Qualified Codes: I10 - Essential (primary) hypertension (5) DM (diabetes mellitus): Qualified Codes: E13.8 - Other specified diabetes mellitus with unspecified complications Remington Vinson MD R2 Apr 24, 2017 10:20 Jil Fenton MD Apr 24, 2017 13:24
--- NOTE | 2017-04-24 12:19 | HHI.DCPOC ---
Discharge Care Plan Diagnosis: (1) Gastritis (2) CLL (chronic lymphocytic leukemia) Goals to Promote Your Health * To prevent worsening of your condition and complications, follow-up with [facility] 1 week after leaving the hospital. Directions to Meet Your Goals Take your medications as prescribed Follow your dietary instruction Follow activity as directed Keep your appointments as scheduled Take your immunizations and boosters as scheduled If your symptoms worsen call your PCP, if no PCP go to Urgent Care Center or Emergency Room Smoking is Dangerous to Your Health. Avoid second hand smoke Call the 24-hour hour crisis hotline for domestic abuse at Remington Vinson MD R2 Apr 24, 2017 12:19
--- NOTE | 2017-04-24 12:19 | HHI.DCPOC ---
Discharge Care Plan Diagnosis: (1) Gastritis (2) CLL (chronic lymphocytic leukemia) Goals to Promote Your Health * To prevent worsening of your condition and complications, follow-up with [facility] 1 week after leaving the hospital. Directions to Meet Your Goals Take your medications as prescribed Follow your dietary instruction Follow activity as directed Keep your appointments as scheduled Take your immunizations and boosters as scheduled If your symptoms worsen call your PCP, if no PCP go to Urgent Care Center or Emergency Room Smoking is Dangerous to Your Health. Avoid second hand smoke Call the 24-hour hour crisis hotline for domestic abuse at Remington Vinson MD R2 Apr 24, 2017 12:19
--- NOTE | 2017-04-24 12:19 | HHI.DCPOC ---
Discharge Care Plan Diagnosis: (1) Gastritis (2) CLL (chronic lymphocytic leukemia) Goals to Promote Your Health * To prevent worsening of your condition and complications, follow-up with [facility] 1 week after leaving the hospital. Directions to Meet Your Goals Take your medications as prescribed Follow your dietary instruction Follow activity as directed Keep your appointments as scheduled Take your immunizations and boosters as scheduled If your symptoms worsen call your PCP, if no PCP go to Urgent Care Center or Emergency Room Smoking is Dangerous to Your Health. Avoid second hand smoke Call the 24-hour hour crisis hotline for domestic abuse at Remington Vinson MD R2 Apr 24, 2017 12:19
[2017-04-24] MEDS ORDERED: PROT40TA PO (12:21)
--- NOTE | 2017-04-24 21:02 | EKG ---
Date Performed: 04/23/2017 Time Performed: 01:30:40 PTAGE: 72 years EKG: Sinus rhythm . Lead(s) unsuitable for analysis: V5 Inferior T wave changes are nonspecific Borderline ECG PREVIOUS TRACING : 04/22/2017 19.53 DOCTOR: Tom Leigh Interpretating Date/Time 04/24/2017 20:54:45
--- NOTE | 2017-04-24 21:07 | EKG ---
Date Performed: 04/22/2017 Time Performed: 19:53:54 PTAGE: 71 years EKG: Sinus rhythm NONSPECIFIC T-WAVE ABNORMALITY BORDERLINE ECG PREVIOUS TRACING : 04/22/2017 06.29 DOCTOR: Tom Leigh Interpretating Date/Time 04/24/2017 20:58:45
--- NOTE | 2017-04-25 12:01 | HHI.DS ---
Discharge Summary Admission Date Apr 22, 2017 at 10:32 Admitting Diagnosis gi bleed, abdominal pain (1) Abdominal pain Plan: Initially came into the ED with diffuse abdominal pain and distension that has now resolved. Splenomegaly on physical exam. Guaiac + stool. Hemoccult obtained given patient continuing to report very black stools - GI consulted and pt does not need colonoscopy. He did have recent colonoscopy and his H/H is stable. He can avoid NSAIDS and take Protonix to prevent ulcers - Regular diet - IVF 80 mls/hr - D/C all NSAIDs - SCDs only - EGD 04/23 by GI showing mild gastritis, biopsy obtained to rule out H pylori, no ulcers or tumor seen. ICD Codes: R10.9 - Unspecified abdominal pain Status: Acute (2) Chest pain Plan: EKG normal on admission. Patient complains of upper left chest pain radiating to the left shoulder, worse with movement and deep breaths. Likely not cardiac related Troponins and EKG obtained x3 all negative On exam, patient has tenderness and muscle spasm of left trapezius - Lortab and heating pad for pain control ICD Codes: R07.9 - Chest pain, unspecified (3) CLL (chronic lymphocytic leukemia) Plan: Diagnosed in 2016. Follow[facility] w[facility] Not currently being treated but being monitored via [id number] appointments. WBC count today of 73.6 - Requested medical records from his oncologist His Oncologist will need to decide when to start treatment ICD Codes: C91.10 - Chronic lymphocytic leukemia of B-cell type not having achieved remission Status: Chronic (4) HLD (hyperlipidemia) Plan: Continue home statin ICD Codes: E78.5 - Hyperlipidemia, unspecified Status: Chronic (5) Arthritis Plan: Hold all NSAIDs for now ICD Codes: M19.90 - Unspecified osteoarthritis, unspecified site Status: Chronic (6) HTN (hypertension) Plan: Continue home hydrochlorothiazide, lisinopril, nifedipine Hold home atenolol ICD Codes: I10 - Essential (primary) hypertension Status: Acute (7) DM (diabetes mellitus) Plan: Continue Accu-Cheks Hold home metformin Low-dose insulin sliding scale ICD Codes: E11.9 - Type 2 diabetes mellitus without complications Status: Acute (8) FEN Plan: Fluids: Normal saline at maintenance rate Electrolytes: Within normal limits Nutrition: Regular GI ppx: Protonix 40 mg po daily DVT ppx: b/l SCDs Brief History Mr Carbajal is a 71 y/o M w/hx of HTN, HLD, CLL and DM2 who presents w/ abdominal pain and melena. Yesterday, patient had a bloated feeling and diffuse 8/10 abdominal pain in stomach, which caused him to take shallow breaths. He bought some peptobismol, drank the whole bottle but saw no improvement. Pain radiated to shoulder, and intensity of pain brought him to hospital. Feels sharp pain when moving shoulder , no abdominal pain now. Noticed black stool late yesterday afternoon, no diarrhea, or loose stools associated with it. Denies lightheadedness, palpitations, or dizziness. Notices his balance is off a little. Was hospitalized a year ago and diagnosed with leukemia. Remembers having abdominal pain before and taking milk of magnesia but no hx of melena of GI bleed that the patient can recall. Primary care doctor is Dr. Pedro in [facility]. Has a [facility] doctor, but can't think of his name. Was supposed to see him today. Last colonoscopy was 9 months ago, no abnormal findings. No hx of abnormal colonoscopy. Sees oncologist Q6 months at the [facility]. Has not been undergoing treatment for his CLL due to not warranting it. Last appointment was last week, was told that his labs looked good but that he would need to follow up q3 months. Denies weight loss, night sweats, or fevers. Black stools can be caused by peptobismol but per report he may have been heme positive in the ED. He was taking NSAIDS at home and these were stopped and he was given Protonix. He has no abdominal pain today and feels well. His chest pain is in his shoulder on the left. His muscles are tight and he has pain when moving his shoulder. He has no substernal cheat pain and no sxs of angina. CBC/BMP: 04/24/17 0614 04/23/17 0615 Significant Findings Laboratory Tests Test 04/22/17 15:55 04/22/17 21:28 04/22/17 23:30 04/23/17 06:15 Hemoglobin 10.9 GM/DL (13.0-17.0) 10.8 GM/DL (13.0-17.0) 11.0 GM/DL (13.0-17.0) Hematocrit 34.2 % (39.0-51.0) 33.6 % (39.0-51.0) 34.0 % (39.0-51.0) Troponin I LESS THAN 0.02 NG/ML LESS THAN 0.02 NG/ML White Blood Count 46.6 TH/MM3 (4.0-11.0) Red Blood Count 4.28 MIL/MM3 (4.50-5.90) Mean Corpuscular Volume 79.5 FL (80.0-100.0) Mean Corpuscular Hemoglobin 25.8 PG (27.0-34.0) Red Cell Distribution Width 17.4 % (11.6-17.2) Platelet Count 95 TH/MM3 (150-450) Neutrophils % (Manual) 4 % (16-70) Lymphocytes % 90 % (9-44) Platelet Estimate LOW (NORMAL) Albumin 3.3 GM/DL (3.4-5.0) Estimat Glomerular Filtration Rate 88 ML/MIN (>89) Test 04/24/17 06:14 White Blood Count 73.6 TH/MM3 (4.0-11.0) Hemoglobin 12.4 GM/DL (13.0-17.0) Hematocrit 38.1 % (39.0-51.0) Mean Corpuscular Volume 79.4 FL (80.0-100.0) Mean Corpuscular Hemoglobin 25.8 PG (27.0-34.0) Red Cell Distribution Width 17.6 % (11.6-17.2) Platelet Count 111 TH/MM3 (150-450) PE at Discharge GENERAL: This is a well-nourished, well-developed patient, in no apparent distress. SKIN: No rashes, ecchymoses or lesions. Cool and dry. HEAD: Atraumatic. Normocephalic. EYES: Extraocular motions intact. No scleral icterus. No injection or drainage. ENT: Nose without bleeding, purulent drainage or septal hematoma. Airway patent. NECK: Trachea midline. No JVD or lymphadenopathy. Tenderness to palpation of left trapezius and anterior upper shoulder. CARDIOVASCULAR: Regular rate and rhythm without murmurs, gallops, or rubs. RESPIRATORY: Clear to auscultation. Breath sounds equal bilaterally. No wheezes , rales, or rhonchi. GASTROINTESTINAL: Abdomen soft, nontender, nondistended. splenomegaly noted with palpable spleen nearly to mid abdomen . MUSCULOSKELETAL: Extremities without clubbing, cyanosis, or edema. No joint tenderness, effusion, or edema noted. No calf tenderness. NEUROLOGICAL: Awake and alert. Motor and sensory grossly within normal limits. Normal speech. Pt Condition on Discharge: Stable Discharge Disposition: Discharge Home Discharge Instructions DIET: Follow Instructions for: As Tolerated, No Restrictions Activities you can perform: Regular-No Restrictions Rajani Fuentes MD R1 Apr 25, 2017 12:01
--- NOTE | 2017-04-27 15:13 | HHI.DS ---
Discharge Summary Admission Date Apr 22, 2017 at 10:32 Discharge Date: Apr 24, 2017 Admitting Diagnosis gi bleed, abdominal pain (1) Abdominal pain Diagnosis: Principal Plan: Initially came into the ED with diffuse abdominal pain and distension that has now resolved. Splenomegaly on physical exam. Guaiac + stool. Hemoccult obtained given patient continuing to report very black stools - GI consulted and pt does not need colonoscopy. He did have recent colonoscopy and his H/H is stable. He can avoid NSAIDS and take Protonix to prevent ulcers - Regular diet - IVF 80 mls/hr - D/C all NSAIDs - SCDs only - EGD 04/23 by GI showing mild gastritis, biopsy obtained to rule out H pylori, no ulcers or tumor seen. ICD Codes: R10.9 - Unspecified abdominal pain Status: Acute (2) Chest pain Diagnosis: Secondary Plan: EKG normal on admission. Patient complains of upper left chest pain radiating to the left shoulder, worse with movement and deep breaths. Likely not cardiac related Troponins and EKG obtained x3 all negative On exam, patient has tenderness and muscle spasm of left trapezius - Lortab and heating pad for pain control ICD Codes: R07.9 - Chest pain, unspecified (3) CLL (chronic lymphocytic leukemia) Diagnosis: Secondary Plan: Diagnosed in 2016. [facility]. Not currently being treated but being monitored via [id number] appointments. WBC count today of 73.6 - Requested medical records from his oncologist His Oncologist will need to decide when to start treatment ICD Codes: C91.10 - Chronic lymphocytic leukemia of B-cell type not having achieved remission Status: Chronic (4) HLD (hyperlipidemia) Diagnosis: Secondary Plan: Continue home statin ICD Codes: E78.5 - Hyperlipidemia, unspecified Status: Chronic (5) Arthritis Diagnosis: Secondary Plan: Hold all NSAIDs for now ICD Codes: M19.90 - Unspecified osteoarthritis, unspecified site Status: Chronic (6) HTN (hypertension) Diagnosis: Secondary Plan: Continue home hydrochlorothiazide, lisinopril, nifedipine Hold home atenolol ICD Codes: I10 - Essential (primary) hypertension Status: Acute (7) DM (diabetes mellitus) Diagnosis: Secondary Plan: Continue Accu-Cheks Hold home metformin Low-dose insulin sliding scale ICD Codes: E11.9 - Type 2 diabetes mellitus without complications Status: Acute (8) FEN Diagnosis: Secondary Plan: Fluids: Normal saline at maintenance rate Electrolytes: Within normal limits Nutrition: Regular GI ppx: Protonix 40 mg po daily DVT ppx: b/l SCDs Consultants Gastroenterology Brief History Mr Carbajal is a 71 y/o M w/hx of HTN, HLD, CLL and DM2 who presents w/ abdominal pain and melena. Yesterday, patient had a bloated feeling and diffuse 8/10 abdominal pain in stomach, which caused him to take shallow breaths. He bought some peptobismol, drank the whole bottle but saw no improvement. Pain radiated to shoulder, and intensity of pain brought him to hospital. Feels sharp pain when moving shoulder , no abdominal pain now. Noticed black stool late yesterday afternoon, no diarrhea, or loose stools associated with it. Denies lightheadedness, palpitations, or dizziness. Notices his balance is off a little. Was hospitalized a year ago and diagnosed with leukemia. Remembers having abdominal pain before and taking milk of magnesia but no hx of melena of GI bleed that the patient can recall. Primary care doctor is Dr. Pedro in [facility]. Has a [facility] doctor, but can't think of his name. Was supposed to see him today. Last colonoscopy was 9 months ago, no abnormal findings. No hx of abnormal colonoscopy. Sees oncologist Q6 [facility] at the [facility]. Has not been undergoing treatment for his CLL due to not warranting it. Last appointment was last week, was told that his labs looked good but that he would need to follow up q3 months. Denies weight loss, night sweats, or fevers. Black stools can be caused by peptobismol but per report he may have been heme positive in the ED. He was taking NSAIDS at home and these were stopped and he was given Protonix. He has no abdominal pain today and feels well. His chest pain is in his shoulder on the left. His muscles are tight and he has pain when moving his shoulder. He has no substernal cheat pain and no sxs of angina. CBC/BMP: 04/24/1714 04/23/17 0615 Imaging Abdomen/pelvis CT 04/22/2017: New sclera megaly and retroperitoneal adenopathy. This is worrisome for a myeloproliferative disorder. Low density lesion involving the spleen which is poorly characterized on this exam. This is new from the prior study. 2 small pulmonary nodules which are new from the prior study. They could relate to a myeloproliferative disorder. Chest x-ray 04/22/2017: No significant change compared to 04/06/16 PE at Discharge GENERAL: This is a well-nourished, well-developed patient, in no apparent distress. SKIN: No rashes, ecchymoses or lesions. Cool and dry. HEAD: Atraumatic. Normocephalic. EYES: Extraocular motions intact. No scleral icterus. No injection or drainage. ENT: Nose without bleeding, purulent drainage or septal hematoma. Airway patent. NECK: Trachea midline. No JVD or lymphadenopathy. Tenderness to palpation of left trapezius and anterior upper shoulder. CARDIOVASCULAR: Regular rate and rhythm without murmurs, gallops, or rubs. RESPIRATORY: Clear to auscultation. Breath sounds equal bilaterally. No wheezes , rales, or rhonchi. GASTROINTESTINAL: Abdomen soft, nontender, nondistended. splenomegaly noted with palpable spleen nearly to mid abdomen . MUSCULOSKELETAL: Extremities without clubbing, cyanosis, or edema. No joint tenderness, effusion, or edema noted. No calf tenderness. NEUROLOGICAL: Awake and alert. Motor and sensory grossly within normal limits. Normal speech. Hospital Course Patient's stool was guaiac positive in the ED. Patient was started on IV Protonix 40 mg twice daily and kept NPO. H/H were trended. Gastroenterology consulted. Acute coronary syndrome was ruled out given his complaints of left upper chest pain. H/H remained stable throughout his hospitalization. A Hemoccult of stool was negative prior to his discharge. Gastroenterology performed an EGD which showed mild gastritis. No ulcers or tumors were seen. A biopsy was taken to rule out H. pylori. Biopsy report shows features suggestive of a reactive gastropathy. ACS was negative. The patient was advised to follow- up with his regular oncologist for continued observation of his CLL. Pt Condition on Discharge: Stable Discharge Disposition: Discharge Home Discharge Instructions DIET: Follow Instructions for: As Tolerated, No Restrictions Activities you can perform: Regular-No Restrictions Follow up Referrals: Oncology - 1 Week PCP Follow-up - 1 Week New Medications: Pantoprazole (Protonix) 40 Mg Tab 40 MG PO DAILY for Ulcer Prevention, #30 TAB 0 Refills Continued Medications: Amitriptyline (Amitriptyline) 50 Mg Tab 50 MG PO HS for Control Depression, #30 TAB [address] (Aspir-81) 81 Mg Tabdr Atenolol (Atenolol) 50 Mg Tab 50 MG PO DAILY for Blood Pressure Management, #30 TAB 0 Refills Cholecalciferol (Vitamin D3) 1,000 Unit Tab 1000 UNITS PO DAILY for Nutritional Supplement, #1 BOTTLE 0 Refills Hydrochlorothiazide (Hydrochlorothiazide) 50 Mg Tab 50 MG PO DAILY, #60 TAB 0 Refills Lactic Acid (Ammonium Lactate) (Ammonium Lactate) 12% Lotn 1 APPLIC TOPICAL BID, #225 ML 0 Refills Lisinopril (Lisinopril) 40 Mg Tab 40 MG PO DAILY for Blood Pressure Management, #30 TAB 0 Refills Magnesium Oxide (Magnesium Oxide) 400 Mg Tab 400 MG PO DAILY for Nutritional Supplement, TAB 0 Refills Metformin (Metformin) 1,000 Mg Tab 1000 MG PO BIDPC for Blood Sugar Management, #60 TAB 0 Refills With meals Nifedipine ER 24 HR (Nifedipine ER 24 HR) 30 Mg Tab 30 MG PO DAILY, #30 TAB 0 Refills Potassium Chloride ER (Potassium Chloride ER) 20 Meq Tab 20 MEQ PO BID for Electrolyte Replacement, #60 TAB 0 Refills Pravastatin (Pravastatin) 40 Mg Tab 40 MG PO DAILY for Cholesterol Management, #30 TAB 0 Refills Discontinued Medications: Meloxicam (Meloxicam) 15 Mg Tab 15 MG PO DAILY for Arthritis Pain, #30 TAB 0 Refills Remington Vinson MD R2 Apr 27, 2017 15:13
== END 2017-04-24 13:28 | disposition home or self-care (01) | DRG 378 ==
LOC: NEPE 06:12 → NEDA 09:39 → OBSVTOIN 10:32 → N07B 12:15
PROVIDERS: ADMIT Family Medicine; ATTEND Family Medicine
PROC: 0DB68ZX Excision of Stomach, Via Natural or Artificial Opening Endoscopic, Diagnostic (ICD-10-PCS; principal; 2017-04-23 13:58)
DX: K92.1 Melena (principal); C91.10 Chronic lymphocytic leukemia of B-cell type not having achieved remission; E11.9 Type 2 diabetes mellitus without complications; R16.1 Splenomegaly, not elsewhere classified; I10 Essential (primary) hypertension; D64.9 Anemia, unspecified; K29.70 Gastritis, unspecified, without bleeding; M19.90 Unspecified osteoarthritis, unspecified site; Z66 Do not resuscitate; M62.838 Other muscle spasm; R07.89 Other chest pain; R59.0 Localized enlarged lymph nodes; R91.8 Other nonspecific abnormal finding of lung field; E78.00 Pure hypercholesterolemia, unspecified; Z79.82 Long term (current) use of aspirin; Z79.899 Other long term (current) drug therapy; Z79.84 Long term (current) use of oral hypoglycemic drugs; Z87.442 Personal history of urinary calculi; Z85.46 Personal history of malignant neoplasm of prostate
CPT/HCPCS: 71010; 74177; 80053; 81001; 82272; 82550; 82948; 83690; 83735; 84484; 85007; 85014; 85018; 85027; 85610; 85730; 88305; 88312; 93005; 96361; 96374; C9113; J1815; J7030; J7040; Q9967

== ENCOUNTER 2017-10-01 08:49 | Emergency (ER) | payer MEDICARE, OTHER ==
[~2017-10-01] VITALS: Ht 185.4 cm; Wt 100.0 kg
[~2017-10-01 08:49] MED LIST changes: -MELO-1 PO; +PROT40TA PO
[2017-10-01] MEDS ORDERED: IOHEXOL 350 MG/ML 10 ML VIAL (for RAD DIAG) IVCONTRAST ONE (08:50)
[2017-10-01 08:52] VITALS: BP 143/71; PULSE 97; RESP 16; TEMP 97.1; O2SAT 99
[2017-10-01] MEDS ORDERED: GLIP5TAB8 PO (09:08)
[2017-10-01] MEDS ORDERED: AMBI10TA PO (09:08)
[2017-10-01] MEDS ORDERED: VITA10002 PO (09:08)
[2017-10-01] MEDS ORDERED: SODIUM CHLOR 0.9% 1000 ML INJ 1,000 ML IV SCH (09:23)
[2017-10-01] MEDS ORDERED: SODIUM CHLORIDE 0.9% FLUSH 10 ML FLUSH IV FLUSH PRN (09:30)
[2017-10-01 10:34] LABS: HEMATOCRIT 35.6 % (39.0-51.0); HEMOGLOBIN 11.4 GM/DL (13.0-17.0); MEAN CELL VOLUME 79.3 FL (80.0-100.0); MEAN CORPUSCULAR HEMOGLOBIN 25.3 PG (27.0-34.0); MEAN PLATELET VOLUME 8.6 FL (7.0-11.0); PLATELET COUNT 112 TH/MM3 (150-450); RED BLOOD COUNT 4.49 MIL/MM3 (4.50-5.90); RED CELL DISTRIBUTION WIDTH 17.8 % (11.6-17.2); WHITE BLOOD COUNT 89.8 TH/MM3 (4.0-11.0)
[2017-10-01 10:55] LABS: ALBUMIN 4.1 GM/DL (3.4-5.0); ALT (GPT) 28 U/L (12-78); AST (GOT) 31 U/L (15-37); BICARBONATE 24.4 MEQ/L (21.0-32.0); BLOOD UREA NITROGEN 37 MG/DL (7-18); CALCIUM 9.1 MG/DL (8.5-10.1); CHLORIDE 106 MEQ/L (98-107); GLOMERULAR FILTRATION RATE 65 ML/MIN (>89); GLUCOSE,RANDOM 99 MG/DL (74-106); SODIUM (NA) 139 MEQ/L (136-145)
[2017-10-01 10:56] LABS: BILIRUBIN, URINE NEG (NEG); BLOOD, URINE NEG (NEG); GLUCOSE,URINE NEG (NEG); KETONE, URINE NEG (NEG); MUCUS URINE FEW /lpf (OCC); NITRITE,URINE NEG (NEG); URINE COLOR LIGHT-YELLOW (YELLW/STRAW); URINE LEUKOCYTE ESTERASE NEG (NEG)
[2017-10-01 10:59] LABS: ALKALINE PHOSPHATASE 80 U/L (45-117); TOTAL BILIRUBIN ADULT 0.6 MG/DL (0.2-1.0); TOTAL PROTEIN 8.8 GM/DL (6.4-8.2); TROPONIN I 0.02 NG/ML (0.02-0.05)
[2017-10-01 11:06] LABS: MONOCYTES 1 % (0-8); NEUTROPHIL # MANUAL DIFF 7.2 TH/MM3 (1.8-7.7); POLYS (SEG NEUTROPHILS) 8 % (16-70)
[2017-10-01 11:07] LABS: LYMPHOCYTES 91 % (9-44)
[2017-10-01 11:09] LABS: OVALOCYTES 1+ (NORMAL)
--- NOTE | 2017-10-01 11:40 | RADRPT ---
EXAM DATE/TIME: 10/01/2017 11:14 [place] COMPARISON: CT ABDOMEN & PELVIS W CONTRAST, April 22, 2017, 8:23. INDICATIONS : Right flank pain for three days. IV CONTRAST: 96 cc Omnipaque 350 (iohexol) IV ORAL CONTRAST: No oral contrast ingested. RADIATION DOSE: 12.81 CTDIvol (mGy) MEDICAL HISTORY : Carcinoma, prostate. Renal calculi. Leukemia.hepatitis B, diabetes SURGICAL HISTORY : Appendectomy. ENCOUNTER: Initial ACUITY: 3 days PAIN SCALE: 7/10 LOCATION: Right flank TECHNIQUE: Volumetric scanning of the abdomen and pelvis was performed. Using automated exposure control and adjustment of the mA and/or kV according to patient size, radiation dose was kept as low as reasonably achievable to obtain optimal diagnostic quality images. DICOM format image data is av ailable electronically for review and comparison. FINDINGS: LOWER LUNGS: There is a stable area of scarring, tuberculosis adjacent to the posterior medial ri ght lower lobe adjacent to large anterior osteophytes. The previously noted noncalcified nodule withi n the right lower lobe is no longer visualized. LIVER: There is a single small subcentimeter hypodensity identified in the right lobe of the live r on image 26, stable. The remainder the liver is normal in appearance. SPLEEN: There is progressive massive splenomegaly with the spleen now measuring 26 cm craniocauda lly as compared to 21 cm on the prior exam. PANCREAS: Within normal limits. KIDNEYS: There is a well-circumscribed benign appearing cysts identified within the upper pole of the left kidney measuring 3.9 cm in size. No evidence of stones, concerning renal mass or hydronephr osis. ADRENAL GLANDS: Within normal limits. VASCULAR: There is no aortic aneurysm. BOWEL/MESENTERY: The stomach, small bowel, and colon demonstrate no acute abnormality. There is no free intraperitoneal air or fluid. ABDOMINAL WALL: Within normal limits. RETROPERITONEUM: There is progressive lymphadenopathy identified adjacent to the aorta within the upper abdomen. These measure between 8 mm and 1.1 cm in size. BLADDER: No wall thickening or mass. REPRODUCTIVE: Radiopaque seeds identified within the prostate gland. INGUINAL: There is no lymphadenopathy or hernia. MUSCULOSKELETAL: Degenerative changes seen within the lumbar spine. Total right hip prosthesis. B ilateral bridging osteophytes of the SI joint. No lytic or blastic lesion. CONCLUSION: #1 no evidence of inflammatory process within the right lower quadrant. No evidence of renal stones. 2. There is progressive massive splenomegaly and progressive enlargement of periaortic lymph nodes. Gladys Callaway MD on October 01, 2017 at 11:30 Board Certified Radiologist. This report was verified electronically.
[2017-10-01] MEDS ORDERED: PERC5TAB12 PO (12:32)
--- NOTE | 2017-10-01 12:32 | PD ---
HPI Chief Complaint: Flank/Kidney Pain Time Seen by Provider: 09:19 Travel History International Travel<30 days: No Contact w/Intl Traveler<30days: No Traveled to known affect area: No History of Present Illness HPI This 72-year-old male with a history of chronic lymphocytic leukemia presents emerged prior right flank and right back pain is been ongoing for the past 2-3 days. Symptoms been constant. No real aggravating or relieving factors. No real associated symptoms. No fevers. No vomiting. Some more pain in the past but this seems worse when he is out of before. Review of record shows he has had splenomegaly and left flank pain in the past. He follows with the [facility]. There is monitoring his CLL for now. He has had kidney stones in the past but states this feels different. He otherwise had been feeling generally well and healthy. No other complaints. History Past Medical History Narrative Medical CLL, diagnosed 2015, followed at the [facility] Hyperlipidemia Hypertension Diabetes Kidney stones Social History Alcohol Use: No Tobacco Use: No (never) Allergies-Medications (Allergen,Severity, Reaction): Coded Allergies: codeine (Unverified Allergy, Intermediate, HALLUCINATIONS, 04/22/17) Reported Meds & Prescriptions Reported Meds & Active Scripts Active Percocet (Oxycodone-Acetaminophen) 5-325 mg Tab 1-2 Tab PO Q6H PRN Reported Ambien (Zolpidem Tartrate) 10 Mg Tab 10 Mg PO HS PRN Vitamin B-12 (Cyanocobalamin) 1,000 Mcg Tab 1,000 Mcg PO DAILY Glipizide 5 Mg Tab 5 Mg PO BIDAC Take 30 minutes before a meal Aspir-81 (Aspirin) 81 Mg Tabdr Pravastatin 40 Mg Tab 40 Mg PO DAILY Potassium Chloride ER (Potassium Chloride) 20 Meq Tab 20 Meq PO BID Nifedipine ER 24 HR (Nifedipine) 30 Mg Tab 30 Mg PO DAILY Magnesium Oxide 400 Mg Tab 400 Mg PO DAILY Lisinopril 40 Mg Tab 40 Mg PO DAILY Hydrochlorothiazide 50 Mg Tab 50 Mg PO DAILY Vitamin D3 (Cholecalciferol) 1,000 Unit Tab 1,000 Units PO DAILY Atenolol 50 Mg Tab 50 Mg PO DAILY Review of Systems Except as stated in HPI: all other systems reviewed are Neg Physical Exam Narrative GENERAL: Well-appearing 72-year-old man, no acute distress per SKIN: Focused skin assessment warm/dry. HEAD: Atraumatic. Normocephalic. EYES: Pupils equal and round. No scleral icterus. No injection or drainage. ENT: No nasal bleeding or discharge. Mucous membranes pink and moist. NECK: Trachea midline. No JVD. CARDIOVASCULAR: Regular rate and rhythm. No murmur appreciated. RESPIRATORY: No accessory muscle use. Clear to auscultation. Breath sounds equal bilaterally. GASTROINTESTINAL: Abdomen is flat and soft. I do not distinctly palpate the liver edge. There is some right-sided tenderness. No voluntary guarding. No rebound. MUSCULOSKELETAL: No obvious deformities. No clubbing. No cyanosis. No edema. NEUROLOGICAL: Awake and alert. No obvious cranial nerve deficits. Motor grossly within normal limits. Normal speech. PSYCHIATRIC: Appropriate mood and affect; insight and judgment normal. Data Data Last Documented VS Vital Signs Date Time Temp Pulse Resp B/P (MAP) Pulse Ox O2 Delivery O2 Flow Rate FiO2 10/01/17 08:52 97.1 97 16 143/71 (95) 99 Orders Orders Complete Blood Count With Diff (10/01/17 09:23) Comprehensive Metabolic Panel (10/01/17 09:23) Lipase (10/01/17 09:23) Urinalysis - C+S If Indicated (10/01/17 09:23) Iv Access Insert/Monitor (10/01/17 09:23) Sodium Chlor 0.9% 1000 Ml Inj (Ns 1000 M (10/01/17 09:23) Sodium Chloride 0.9% Flush (Ns Flush) (10/01/17 09:30) Electrocardiogram (10/01/17 09:23) Troponin I (10/01/17 09:23) Ct Abd/Pel W Iv Contrast(Rout) (10/01/17 ) Iohexol 350 Inj (Omnipaque 350 Inj) (10/01/17 08:50) Ed Discharge Order (10/01/17 12:34) Labs Laboratory Tests Test 10/01/17 09:15 10/01/17 10:45 White Blood Count 89.8 TH/MM3 Red Blood Count 4.49 MIL/MM3 Hemoglobin 11.4 GM/DL Hematocrit 35.6 % Mean Corpuscular Volume 79.3 FL Mean Corpuscular Hemoglobin 25.3 PG Mean Corpuscular Hemoglobin Concent 32.0 % Red Cell Distribution Width 17.8 % Platelet Count 112 TH/MM3 Mean Platelet Volume 8.6 FL CBC Comment AUTO DIFF Differential Total Cells Counted 100 Neutrophils % (Manual) 8 % Lymphocytes % 91 % Monocytes % 1 % Neutrophils # (Manual) 7.2 TH/MM3 Differential Comment FINAL DIFF MANUAL Platelet Estimate LOW Platelet Morphology Comment NORMAL Ovalocytes 1+ Blood Urea Nitrogen 37 MG/DL Creatinine 1.30 MG/DL Random Glucose 99 MG/DL Total Protein 8.8 GM/DL Albumin 4.1 GM/DL Calcium Level 9.1 MG/DL Alkaline Phosphatase 80 U/L Aspartate Amino Transf (AST/SGOT) 31 U/L Alanine Aminotransferase (ALT/SGPT) 28 U/L Total Bilirubin 0.6 MG/DL Sodium Level 139 MEQ/L Potassium Level 4.0 MEQ/L Chloride Level 106 MEQ/L Carbon Dioxide Level 24.4 MEQ/L Anion Gap 9 MEQ/L Estimat Glomerular Filtration Rate 65 ML/MIN Troponin I 0.02 NG/ML Lipase 106 U/L Urine Color LIGHT-YELLOW Urine Turbidity CLEAR Urine pH 5.0 Urine Specific [place] 1.015 Urine Protein NEG mg/dL Urine Glucose (UA) NEG mg/dL Urine Ketones NEG mg/dL Urine Occult Blood NEG Urine Nitrite NEG Urine Bilirubin NEG Urine Urobilinogen LESS THAN 2.0 MG/DL Urine Leukocyte Esterase NEG Urine RBC 1 /hpf Urine WBC LESS THAN 1 /hpf Urine Mucus FEW /lpf Microscopic Urinalysis Comment CULT NOT INDICATED MDM Medical Decision Making Medical Screen Exam Complete: Yes Emergency Medical Condition: Yes Interpretation(s) LABS: CBC is remarkable for white count of 89,000, hemoglobin 11.4 91% lymphs CMP is unremarkable, BUN is a little elevated at 37 Troponin negative Lipase normal UA unremarkable CT the abdomen and pelvis: No evidence of inflammatory process, no renal stones , progressive massive splenomegaly progressive enlargement of the periaortic lymph nodes. Differential Diagnosis CLL, spinal megaly, hepatomegaly, renal lithiasis, cholelithiasis, pancreatitis , weakness, other Narrative Course Medical decision making This 72-year-old man presents to the emergency department with right flank pain. I think this is probably from hepatosplenomegaly. Is an ongoing process related to his CLL. CT scans otherwise benign. He had a negative Kam's in the gallbladder appears normal. Recommend supportive treatment and outpatient follow-up. Diagnosis Primary Impression: Acute flank pain Additional Instructions: Take pain medicine as needed for pain. Follow-up with your oncologist this week. Return to the emergency department for any new or worsening symptoms. Med/Other Pt SpecificInfo: Prescription(s) given Scripts Oxycodone-Acetaminophen (Percocet) 5-325 mg Tab 1-2 TAB PO Q6H Y for PAIN, #21 TAB 0 Refills Prov: Ian Ortega MD 10/01/17 Disposition: 01 DISCHARGE HOME Condition: Stable Ian Ortega MD Oct 01, 2017 12:32
--- NOTE | 2017-10-02 20:05 | EKG ---
Date Performed: 10/01/2017 Time Performed: 10:46:36 PTAGE: 72 years EKG: Sinus rhythm ST ELEVATION, PROBABLY EARLY REPOLARIZATION Since the previous tracing, no significant change noted BORDERLINE ECG PREVIOUS TRACING : 04/23/2017 01.30 DOCTOR: Vinicio Martinez Interpretating Date/Time 10/02/2017 20:04:56
== END 2017-10-01 13:33 | disposition home or self-care (01) ==
LOC: NEPE 08:49
DX: R10.9 Unspecified abdominal pain (principal); M54.9 Dorsalgia, unspecified; R16.1 Splenomegaly, not elsewhere classified; R94.31 Abnormal electrocardiogram [ECG] [EKG]; C91.10 Chronic lymphocytic leukemia of B-cell type not having achieved remission; E78.5 Hyperlipidemia, unspecified; I10 Essential (primary) hypertension; E11.9 Type 2 diabetes mellitus without complications; Z87.442 Personal history of urinary calculi
CPT/HCPCS: 74177; 80053; 81001; 83690; 84484; 85007; 85027; 93005; 99285; J7030; Q9967